=== PATIENT | male | born 1945 | race Caucasian/White ===

== ENCOUNTER 2018-04-07 10:14 | Emergency (ER) | payer MEDICARE, BC ==
[2018-04-07 10:47] LABS: ABSOLUTE LYMPHOCYTES (AUTO) 0.8 10^3/uL (0.5-4.7); ABSOLUTE MONOCYTES (AUTO) 0.6 10^3/uL (0.1-1.4); ABSOLUTE NEUT (AUTO) 5.2 10^3/uL (1.7-8.2); BASOPHILS % (AUTO) 0.4 % (0-2); EOSINOPHILS % (AUTO) 0.5 % (0-6); HEMATOCRIT 37.6 % (37.9-51.0); HEMOGLOBIN 13.4 g/dL (13.5-17.0); LYMPHOCYTES % (AUTO) 12.4 % (13-45); MEAN CORPUSCULAR HEMOGLOBIN 32.8 pg (27.0-33.4); MEAN CORPUSCULAR HGB CONC 35.5 g/dL (32.0-36.0); MEAN CORPUSCULAR VOLUME 92 fl (80-97); MONOCYTES % (AUTO) 8.7 % (3-13); PLATELET COUNT 336 10^3/uL (150-450); RED BLOOD COUNT 4.07 10^6/uL (4.35-5.55); TOTAL CELLS COUNTED % (AUTO) 100 %; WHITE BLOOD COUNT 6.6 10^3/uL (4.0-10.5)
[2018-04-07] MEDS ORDERED: NORMAL SALINE 1000 ML 1,000 ML IV ONE ×2 (11:00→11:47)
[2018-04-07 11:05] LABS: ALANINE AMINOTRANSFERASE 29 U/L (21-72); ALBUMIN 3.6 g/dL (3.5-5.0); ALKALINE PHOSPHATASE 145 U/L (38-126); ANION GAP 14 (5-19); ASPARTATE AMINO TRANSFERASE 32 U/L (17-59); BILIRUBIN,DIRECT 0.3 mg/dL (0.0-0.4); BILIRUBIN,TOTAL 0.7 mg/dL (0.2-1.3); BLOOD UREA NITROGEN 30 mg/dL (7-20); CALCIUM 9.1 mg/dL (8.4-10.2); CARBON DIOXIDE 27 mmol/L (22-30); CHLORIDE 93 mmol/L (98-107); GLUCOSE 123 mg/dL (75-110); POTASSIUM 3.7 mmol/L (3.6-5.0); SODIUM 134.2 mmol/L (137-145); TOTAL PROTEIN 6.8 g/dL (6.3-8.2)
--- NOTE | 2018-04-07 11:06 | ER Document Report ---
ED General - General Chief Complaint: Nausea/Vomiting Stated Complaint: WEAKNESS Time Seen by Provider: 04/07/18 10:37 Notes: Pleasant 72-year-old male with a very recent diagnosis of lymphoma, hypertension, CVA in 2015, diabetes presents to the emergency department for weakness and dehydration. states he has been very sick for the last 2 weeks and has had a very decreased appetite. She noticed that he had fruity breath and has been very lethargic and sleeping over the past 2 days prompting her to seek care. He was complaining of increased pain but took a hydrocodone prior to coming and now states he is pain-free. He denies fevers chills, headache, dizziness or lightheadedness, shortness of breath or chest pain, nausea or vomiting, abdominal pain, no other complaints. states that he was altered last night. TRAVEL OUTSIDE OF THE [place] IN LAST 30 DAYS: No - Related Data Allergies/Adverse Reactions: No Known Allergies Allergy (Verified 04/07/18 10:16) Past Medical History - Social History Smoking Status: Unknown if Ever Smoked Family History: Reviewed & Not Pertinent Review of Systems - Review of Systems Constitutional: See HPI EENT: No symptoms reported Cardiovascular: See HPI Respiratory: See HPI Gastrointestinal: See HPI Genitourinary: See HPI Male Genitourinary: No symptoms reported Musculoskeletal: No symptoms reported Skin: No symptoms reported Hematologic/Lymphatic: No symptoms reported Neurological/Psychological: See HPI Physical Exam - Vital signs Vitals: Temp Pulse Resp BP Pulse Ox 97.8 F 118 H 18 107/70 96 04/07/18 10:20 04/07/18 10:20 04/07/18 10:20 04/07/18 10:20 04/07/18 10:20 - Notes Notes: PHYSICAL EXAMINATION: Reviewed vital signs and charting by RN GENERAL: Alert, interacts well. No acute distress. HEAD: Normocephalic, atraumatic. EYES: Pupils equal, round. Extraocular movements intact. ENT: Oral mucosa dry, tongue midline. NECK: Full range of motion. Supple. Trachea midline. LUNGS: Clear to auscultation bilaterally, no wheezes, rales, or rhonchi. No respiratory distress. HEART: Sinus tachycardia. No murmur ABDOMEN: soft, mild epigastric tenderness to palpation. Non-distended. Bowel sounds present in all 4 quadrants. no McBurney's point tenderness, no Paiz si gn. EXTREMITIES: Moves all 4 extremities spontaneously. No edema, No cyanosis. NEUROLOGICAL: Alert. Normal speech. No focal neuro deficits. No pronator drift. Strength 5/5 in all 4 extremities. Strength 5/5 plantar/dorsiflexion PSYCH: Normal affect, normal mood. SKIN: Warm, dry, normal turgor. No rashes or lesions noted. Course - Re-evaluation Re-evalutation: 04/07/18 13:19 Patient presents general failure to thrive. Recently diagnosed with lymphoma. Has not eaten hardly any food in 2 weeks. Patient initially sinus tachycardia and looks clinically dehydrated. Patient has received 2 L normal saline with mild resolution of tachycardia, he is currently borderline sinus tachycardia. Lactate 1.0, negative troponin, no acidosis. I called Dr. Ferrara to consult. He requested further hydration. At this point family members concerned that patient will bounce right back here for needed hydration. 04/07/18 14:[address] Ferrara and asked for formal consultation, he refused to see the patient stated he did not meet admission criteria. I called Dr. Parsons, the patient's oncologist, who agreed to see the patient first thing in the morning and arrange for IV hydration. I discussed this with the patient and his who is a nurse. She feels comfortable with this plan as she noted he has perked up some. He still is sinus tachycardia and does appear clinically dehydrated. We are going to give the patient a lactated Ringer's 500 mL bolus 1 time prior to discharge. Patient states he does have Zofran for nausea but it does not help is not likely dissolvable tabs. Dr. Whiteside went and saw the patient and discussed these things and we will give him Compazine to take home as needed. Also, he just started taking omeprazole yesterday morning but we will give him a prescription for 40 mg daily because he is taking 20 mg [id number]. Patient at this point is stable to discharge home and is very clear about return precautions. - Vital Signs Vital signs: Temp Pulse Resp BP Pulse Ox 97.8 F 118 H 20 122/87 H 97 04/07/18 10:20 04/07/18 10:20 04/07/18 12:04/07/18 12:04/07/18 12:01 - Laboratory Result Diagrams: 04/07/18 10:39 04/07/18 10:39 Laboratory results interpreted by me: 04/07/18 04/07/18 04/07/18 10:39 10:39 12:25 RBC 4.07 L Hgb 13.4 L Hct 37.6 L Lymphocytes % 12.4 L Sodium 134.2 L Chloride 93 L BUN 30 H Est GFR (Non-Af Amer) 57 L Glucose 123 H Alkaline Phosphatase 145 H Urine Ketones 20 H Discharge - Discharge Clinical Impression: Dehydration Condition: Good Disposition: HOME, SELF-CARE Instructions: Dehydration ([facility]) Additional Instructions: Please try to maintain fluid intake. You can try taking the Compazine we have prescribed prior to drinking fluids and eating. Hopefully this will stimulate her appetite. If you continue to become weaker, become dizzy or lightheaded, pale, pass out, please immediately return to the emergency department. Also, given you a prescription for omeprazole 40 mg to take daily please take it 30-60 minutes prior to eating anything in the morning. If you have any other concerns please do not hesitate to return to the emergency department. Like we discussed, I talked to Dr. Dixon and she wants you to follow-up first thing in the morning in her office for reassessment and possible IV hydration. Again, if you have any concerns prior to that please do not hesitate to return to the emergency department.
--- NOTE | 2018-04-07 11:44 | RADIOLOGY REPORT (SQ) ---
EXAM DESCRIPTION: CHEST SINGLE VIEW COMPLETED DATE/TIME: 04/07/2018 11:25 am REASON FOR STUDY: weakness COMPARISON: None. EXAM PARAMETERS: NUMBER OF VIEWS: One view. TECHNIQUE: Single frontal radiographic view of the chest acquired. RADIATION DOSE: NA LIMITATIONS: None. FINDINGS: LUNGS AND PLEURA: No opacities, masses or pneumothorax. No pleural effusion. MEDIASTINUM AND HILAR STRUCTURES: No masses. Contour normal. HEART AND VASCULAR STRUCTURES: Heart normal in size. Normal vasculature. BONES: No acute findings. HARDWARE: None in the chest. OTHER: No other significant finding. IMPRESSION: NO ACUTE RADIOGRAPHIC FINDING IN THE CHEST. TECHNICAL DOCUMENTATION: JOB ID: [id number] [employer]- All Rights Reserved Reading location - IP/workstation name: [email or web address]
[2018-04-07 12:44] LABS: APPEARANCE,URINE SLIGHTLY-CLOUDY; BILIRUBIN,URINE NEGATIVE (NEGATIVE); COLOR,URINE AMBER; GLUCOSE, URINE NEGATIVE (NEGATIVE); KETONES,URINE 20 mg/dL (NEGATIVE); LEUKOCYTE ESTERASE,URINE NEGATIVE (NEGATIVE); NITRITE,URINE NEGATIVE (NEGATIVE); PROTEIN,URINE NEGATIVE (NEGATIVE); URINE SPECIFIC GRAVITY 1.024; UROBILINOGEN,URINE NEGATIVE mg/dL (<2.0)
[2018-04-07] MEDS ORDERED: RINGERS SOLUTION,LACTATED 500 ML IV ONE (13:57)
[2018-04-07] MEDS ORDERED: CEPHALEXIN 500 MG CAPSULE PO ONE (14:28)
[2018-04-07 14:48] VITALS: BP 114/66
--- NOTE | 2018-04-07 22:50 | EKG REPORT ---
SEVERITY:- ABNORMAL ECG - SINUS TACHYCARDIA LEFT AXIS DEVIATION LOW VOLTAGE THROUGHOUT CONSIDER ANTERIOR INFARCT NONSPECIFIC T ABNORMALITIES, LATERAL LEADS : Confirmed by: Bina Petty 07-Apr-2018 22:49:32
== END 2018-04-07 14:57 | disposition home or self-care (01) ==
LOC: ER 10:14
DX: E86.0 Dehydration (principal); C85.90 Non-Hodgkin lymphoma, unspecified, unspecified site; R62.7 Adult failure to thrive; R53.1 Weakness; R63.0 Anorexia; R00.0 Tachycardia, unspecified; I10 Essential (primary) hypertension; Z86.73 Personal history of transient ischemic attack (TIA), and cerebral infarction without residual deficits
CPT/HCPCS: 93005; 99285; 96360; 96361; 36415; 83735; 85025; 80053; 81001; 84484; 83605; 71045; 93010; J7030; J7120

== ENCOUNTER 2018-04-09 02:30 | Inpatient (IN) | payer MEDICARE, BC ==
[2018-04-09 04:18] LABS: ABSOLUTE LYMPHOCYTES (AUTO) 0.6 10^3/uL (0.5-4.7); ABSOLUTE MONOCYTES (AUTO) 0.4 10^3/uL (0.1-1.4); ABSOLUTE NEUT (AUTO) 5.6 10^3/uL (1.7-8.2); BASOPHILS % (AUTO) 0.5 % (0-2); EOSINOPHILS % (AUTO) 0.2 % (0-6); HEMATOCRIT 37.3 % (37.9-51.0); HEMOGLOBIN 13.1 g/dL (13.5-17.0); LYMPHOCYTES % (AUTO) 9.7 % (13-45); MEAN CORPUSCULAR HEMOGLOBIN 32.8 pg (27.0-33.4); MEAN CORPUSCULAR HGB CONC 35.2 g/dL (32.0-36.0); MEAN CORPUSCULAR VOLUME 93 fl (80-97); MONOCYTES % (AUTO) 6.7 % (3-13); PLATELET COUNT 336 10^3/uL (150-450); RED BLOOD COUNT 4.01 10^6/uL (4.35-5.55); RED CELL DISTRIBUTION WIDTH 13.3 % (11.5-14.0); SEGMENTED NEUTROPHILS % (AUTO) 82.9 % (42-78); TOTAL CELLS COUNTED % (AUTO) 100 %; WHITE BLOOD COUNT 6.7 10^3/uL (4.0-10.5)
[2018-04-09 04:34] LABS: ALANINE AMINOTRANSFERASE 28 U/L (21-72); ALBUMIN 3.3 g/dL (3.5-5.0); ALKALINE PHOSPHATASE 131 U/L (38-126); ANION GAP 15 (5-19); ASPARTATE AMINO TRANSFERASE 31 U/L (17-59); BILIRUBIN,DIRECT 0.3 mg/dL (0.0-0.4); BILIRUBIN,TOTAL 0.5 mg/dL (0.2-1.3); BLOOD UREA NITROGEN 22 mg/dL (7-20); CALCIUM 8.8 mg/dL (8.4-10.2); CARBON DIOXIDE 24 mmol/L (22-30); CHLORIDE 100 mmol/L (98-107); GLUCOSE 119 mg/dL (75-110); LIPASE 37.3 U/L (23-300); SODIUM 138.8 mmol/L (137-145); TOTAL PROTEIN 6.1 g/dL (6.3-8.2)
--- NOTE | 2018-04-09 05:50 | RADIOLOGY REPORT (SQ) ---
EXAM DESCRIPTION: CT ABDOMEN PELVIS WITH IV CONTRAST COMPLETED DATE/TME: 04/09/2018 02:41 CLINICAL HISTORY: 72 years, Male, ab pain COMPARISON: None. TECHNIQUE: 719 Images stored on PACS. All CT scanners at this facility use dose modulation, iterative reconstruction, and/or weight based dosing when appropriate to reduce radiation dose to as low as reasonably achievable (ALARA). [facility]: Dose Right [facility]: CareDose [facility]: Dose Right [facility]: Teradose 4D [facility]: [employer] LIMITATIONS: None. FINDINGS: Limited evaluation of the lung bases shows small bilateral pleural effusions. Posterior mediastinal adenopathy, measuring 2.4 x 2.1 cm. Osseous structures of the abdomen/pelvis are grossly intact. The liver, spleen are unremarkable. Prominent appearance to the adrenal glands without discrete or defined nodule. Heterogeneity of the pancreas. Status post cholecystectomy. There is a punctate calcification measuring 2 mm in the region of the pancreatic head. This may be vascular. Nonspecific nonenlarged as well as mildly enlarged lymph nodes throughout the upper abdomen and retroperitoneum. The largest node is in the right aortocaval region, measuring approximately 2.8 x 1.8 cm. Partially calcified left renal cyst. Subjective wall thickening of the duodenum could reflect nonspecific duodenitis. Haziness of the central mesentery with multiple nonenlarged to borderline enlarged central mesenteric lymph nodes. No gross evidence for bowel obstruction. No free intraperitoneal air. Moderate atheromatous change. Trace of ascites. Minor subcutaneous edema and inflammation in the lower anterior abdomen/pelvic region. IMPRESSION: Nonspecific adenopathy of the posterior mediastinum/right infrahilar region as well as nonspecific adenopathy within the upper abdomen, as well as in the retroperitoneum. Mild haziness of the pancreas, correlate with pancreatic enzyme levels. Small bilateral pleural effusions. Possible mild cellulitis of the lower anterior abdomen/pelvic wall.. TECHNICAL DOCUMENTATION: Quality ID # 436: Final reports with documentation of one or more dose reduction techniques (e.g., Automated exposure control, adjustment of the mA and/or kV according to patient size, use of iterative reconstruction technique) copyright 2010 [employer]- All Rights Reserved
--- NOTE | 2018-04-09 05:53 | ER Document Report ---
ED General - General Chief Complaint: Abdominal Pain Stated Complaint: ABDOMINAL PAIN Time Seen by Provider: 04/09/18 02:41 Primary Care Provider: LILA GARCIA MD [Primary Care Provider] - Follow up as needed Cannot obtain history due to: Altered mental status Notes: Patient is a 72-year-old male with past medical history of hypertension, presents with intractable pain, inability to tolerate oral intake, no p.o. intake at home that is been ongoing for the past 2 weeks progressive worsening o roxanne that period of time. In summary the patient was found to have diffuse adenopathy, possible gastric versus pancreatic cancer at [facility] after he presented for upper abdominal pain apparently 2 weeks ago. The family is been following with oncology since that time, waiting to follow definitive diagnosis with biopsy and endoscopy. The provides all history as the patient is resting at the time of my initial evaluation. She reports that at home despite giving 4 mg of oral Dilaudid, 2 tabs of hydrocodone, Compazine, Zofran, has been completely unable to control the patient's symptoms. She states that he also will not take any form of oral intake and that the only fluids he has received have been via IV through the oncology clinic. He has not had fever. She states nothing seems to worsen his symptoms. History is otherwise limited secondary to patient's status at time of my assessment. TRAVEL OUTSIDE OF THE [place] IN LAST 30 DAYS: No - Related Data Allergies/Adverse Reactions: No Known Allergies Allergy (Verified 04/07/18 10:16) Past Medical History - General Information source: Relative - Social History Smoking Status: Never Smoker Frequency of alcohol use: None Drug Abuse: None Lives with: Spouse/Significant other Family History: Reviewed & Not Pertinent Patient has suicidal ideation: No Patient has homicidal ideation: No - Past Medical History Cardiac Medical History: Reports: Hx Hypertension Endocrine Medical History: Reports: Hx Diabetes Mellitus Type 2 Renal/ Medical History: Denies: Hx Peritoneal Dialysis Past Surgical History: Reports: Hx Cholecystectomy Review of Systems - Review of Systems Notes: Constitutional: Negative for fever. HENT: Negative for sore throat. Eyes: Negative for visual changes. Cardiovascular: Negative for chest pain. Respiratory: Negative for shortness of breath. Gastrointestinal: Positive for abdominal pain, nausea Genitourinary: Negative for dysuria. Musculoskeletal: Negative for back pain. Skin: Negative for rash. Neurological: Negative for headaches, weakness or numbness. 10 point ROS negative except as marked above and in HPI. Physical Exam - Vital signs Vitals: Resp 18 04/09/18 02:44 Interpretation: Tachycardic Notes: PHYSICAL EXAMINATION: GENERAL: Somewhat lethargic, intermittently grimacing. HEAD: Atraumatic, normocephalic. EYES: Pupils equal round and reactive to light, extraocular movements intact, sclera anicteric, conjunctiva are normal. ENT: nares patent, oropharynx clear without exudates. Dry mucous membranes. NECK: Normal range of motion, supple without lymphadenopathy LUNGS: Breath sounds clear to auscultation bilaterally and equal. No wheezes rales or rhonchi. HEART: Regular tachycardia without murmurs ABDOMEN: Soft, mild diffuse tenderness to the upper abdomen on palpation but no other localized areas of tenderness, normoactive bowel sounds. No guarding, no rebound. No masses appreciated. EXTREMITIES: Normal range of motion, no pitting or edema. No cyanosis. NEUROLOGICAL: No focal neurological deficits. Moves all extremities spontaneously and on command. PSYCH: Somewhat lethargic but does awaken to answer questions when directly asked. SKIN: Warm, Dry, normal turgor, no rashes or lesions noted. Course - Re-evaluation Re-evalutation: 04/09/18 06:35 Presentation of the patient with uncontrolled pain and inability to tolerate oral intake at home in the setting of probable gastric versus pancreatic cancer versus lymphoma. Patient's labs are overall unremarkable the patient has been receiving IV fluids as an outpatient. Has had periods where he has ripped off his sheets, began writhing around in pain the department witnessed by nursing staff. This has been controlled with IV hydromorphone. I did discuss this case with the patient's oncologist who reports that the patient is failing outpatient management, appropriate for hospitalization. I did discuss with Dr. Marcos who has accepted the patient given intractable pain and inability to take oral intake. - Vital Signs Vital signs: Temp Pulse Resp BP Pulse Ox 97.8 F 19 146/96 H 96 04/09/18 06:27 04/09/18 06:01 04/09/18 06:01 04/09/18 06:01 - Laboratory Result Diagrams: 04/09/18 03:55 04/09/18 03:55 Laboratory results interpreted by me: 04/09/18 04/09/18 03:55 03:55 RBC 4.01 L Hgb 13.1 L Hct 37.3 L Seg Neutrophils % 82.9 H Lymphocytes % 9.7 L BUN 22 H Glucose 119 H Alkaline Phosphatase 131 H Total Protein 6.1 L Albumin 3.3 L - Diagnostic Test Radiology reviewed: Reports reviewed Discharge - Discharge Clinical Impression: Intractable pain, Nausea, Abdominal lymphadenopathy Condition: Fair Disposition: ADMITTED INPATIENT Admitting Provider: Hospitalist Unit Admitted: Medical Floor Referrals: LILA GARCIA MD [Primary Care Provider] - Follow up as needed
[2018-04-09] MEDS ORDERED: HYDROMORPHONE HCL INJ/PF 2 MG/ML AMPULE IV PRN (06:08)
[2018-04-09] MEDS ORDERED: MAGNESIUM HYDROXIDE SUSP 30 ML UDCUP PO PRN (06:47)
[2018-04-09] MEDS ORDERED: ONDANSETRON HCL INJ/PF 4 MG/2 ML SDV IV PRN (07:21)
--- NOTE | 2018-04-09 07:21 | PDOC H&P ---
History of Present Illness Admission Date/PCP: LILA GARCIA MD Patient complains of: Intractable pain, nausea and vomiting History of Present Illness: FIDEL SANTILLAN is a 72 year old male with a past medical history of hypertension, 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 He requires IV D ilaudid and Ativan and referred to the hospitalist for admission for diagnostic lymph node biopsy and oncology consult. Patient is sedated and unable to provide history. Past Medical History Cardiac Medical History: Reports: Hypertension Endocrine Medical History: Reports: Diabetes Mellitus Type 2 Past Surgical History Past Surgical History: Reports: Cholecystectomy Social History Information Source: Relative, [facility] Records Lives with: Spouse/Significant other Smoking Status: Former Smoker Number of Years Smokin Frequency of Alcohol Use: None Drugs: None - Advance Directive Resuscitation Status: Full Code Family History Family History: Malignancy - Brother unknown malignancy Parental Family History Reviewed: Yes Children Family History Reviewed: Yes Sibling(s) Family History Reviewed.: Yes Medication/Allergy Home Medications: Omeprazole 40 mg PO DAILY #30 capsule. 04/07/18 Prochlorperazine Maleate [Compazine 10 mg Tablet] 10 mg PO Q6H PRN #40 tablet 04/07/18 Allergies/Adverse Reactions: No Known Allergies Allergy (Verified 04/07/18 10:16) Review of Systems ROS unobtainable: Due to mental status Physical Exam Vital Signs: Temp Pulse Resp BP Pulse Ox 97.8 F 19 146/96 H 96 04/09/18 06:27 04/09/18 06:01 04/09/18 06:01 04/09/18 06:01 Intake & Output 04/07/18 04/08/18 04/09/18 11:59 11:59 11:59 Weight 108.409 kg General appearance: PRESENT: mild distress, well-developed, well-nourished Head exam: PRESENT: atraumatic Eye exam: PRESENT: conjunctiva pink, EOMI, PERRLA. ABSENT: scleral icterus Ear exam: PRESENT: normal external ear exam Mouth exam: PRESENT: dry mucosa. ABSENT: moist, neck supple Neck exam: ABSENT: carotid bruit, JVD, lymphadenopathy, thyromegaly Respiratory exam: PRESENT: clear to auscultation baldev. ABSENT: rales, rhonchi, wheezes Cardiovascular exam: PRESENT: RRR. ABSENT: diastolic murmur, rubs, systolic murmur Pulses: PRESENT: normal dorsalis pedis pul Vascular exam: PRESENT: normal capillary refill GI/Abdominal exam: PRESENT: diminished bowel sounds, normal bowel sounds, soft. ABSENT: distended, guarding, mass, organolmegaly, rebound, tenderness Rectal exam: PRESENT: deferred Extremities exam: PRESENT: full ROM. ABSENT: calf tenderness, clubbing, pedal edema Neurological exam: PRESENT: altered, CN II-XII grossly intact Psychiatric exam: PRESENT: agitated Skin exam: PRESENT: dry, intact, warm. ABSENT: cyanosis, rash Results Laboratory Results: 04/09/18 03:55 04/09/18 03:55 04/09/18 04/09/18 03:55 03:55 WBC 6.7 RBC 4.01 L Hgb 13.1 L Hct 37.3 L MCV 93 MCH 32.8 MCHC 35.2 RDW 13.3 Plt Count 336 Seg Neutrophils % 82.9 H Lymphocytes % 9.7 L Monocytes % 6.7 Eosinophils % 0.2 Basophils % 0.5 Absolute Neutrophils 5.6 Absolute Lymphocytes 0.6 Absolute Monocytes 0.4 Absolute Eosinophils 0.0 Absolute Basophils 0.0 Sodium 138.8 Potassium 4.0 Chloride 100 Carbon Dioxide 24 Anion Gap 15 BUN 22 H Creatinine 1.05 Est GFR ( Amer) > 60 Est GFR (Non-Af Amer) > 60 Glucose 119 H Calcium 8.8 Total Bilirubin 0.5 AST 31 ALT 28 Alkaline Phosphatase 131 H Total Protein 6.1 L Albumin 3.3 L Lipase 37.3 04/09/18 03:55 Troponin I 0.018 Impressions: Abdomen/Pelvis CT 04/09/18 02:41 IMPRESSION: Nonspecific adenopathy of the posterior mediastinum/right infrahilar region as well as nonspecific adenopathy within the upper abdomen, as well as in the retroperitoneum. Mild haziness of the pancreas, correlate with pancreatic enzyme levels. Small bilateral pleural effusions. Possible mild cellulitis of the lower anterior abdomen/pelvic wall.. TECHNICAL DOCUMENTATION: Quality ID # 436: Final reports with documentation of one or more dose reduction techniques (e.g., Automated exposure control, adjustment of the mA and/or kV according to patient size, use of iterative reconstruction technique) copyright 2011 [employer]- All Rights Reserved Assessment & Plan - Diagnosis (1) Abdominal lymphadenopathy Is this a current diagnosis for this admission?: Yes Plan: Unclear primary, surgical consult for biopsy. Follow-up oncology consult (2) Intractable pain Is this a current diagnosis for this admission?: Yes Plan: IV Dilaudid, Ativan as needed, consider NET MANAGER (3) Nausea Is this a current diagnosis for this admission?: Yes Plan: Ativan and Zofran as needed - Time Time Spent: 50 to 70 Minutes - Inpatient Certification Medical Necessity: Need Close Monitoring Due to Risk of Patient Decompensation
[2018-04-09] MEDS ORDERED: DEXTROSE 5%-NORMAL SALINE 1,000 ML IV ONE (08:14)
--- NOTE | 2018-04-09 09:05 | PDOC PROGRESS REPORT ---
Subjective Progress Note for:: 04/09/18 Subjective:: Hospital Day #1. Still complains of abdominal pain. Pain is alleviated with IV dilaudid. Pain is sharp and rating 7-9 when it hits. He rests comfortably when medicated. He denies any nausea or vomiting, no diarrhea or constipation. No fever or chills. He has had a 20 pound weight loss over the past 3-4 weeks due to not being able to eat due to pain and early satiety. Reason For Visit: INTRACTABLE PAIN STAGE 4 LYMPHOMA VS PANC CA Physical Exam Vital Signs: Temp Pulse Resp BP Pulse Ox 97.8 F 21 H 130/86 H 92 04/09/18 06:27 04/09/18 08:01 04/09/18 08:00 04/09/18 08:01 Intake & Output 04/08/18 04/09/18 04/10/18 06:59 06:59 06:59 Weight 108.409 kg General appearance: PRESENT: no acute distress, cooperative, well-developed Eye exam: PRESENT: EOMI, PERRLA. ABSENT: scleral icterus Ear exam: PRESENT: TM's normal bilaterally Mouth exam: PRESENT: dry mucosa, neck supple Teeth exam: ABSENT: dental caries Neck exam: PRESENT: lymphadenopathy. ABSENT: carotid bruit, JVD, tenderness, thyromegaly, tracheal deviation Respiratory exam: PRESENT: clear to auscultation baldev. ABSENT: accessory muscle use, chest wall tenderness Cardiovascular exam: PRESENT: tachycardia. ABSENT: diastolic murmur Pulses: PRESENT: normal carotid pulses Vascular exam: PRESENT: pallor GI/Abdominal exam: PRESENT: tenderness. ABSENT: ascites, distended Extremities exam: ABSENT: calf tenderness Musculoskeletal exam: PRESENT: ambulatory Neurological exam: PRESENT: alert, oriented to person, oriented to place, oriented to time, oriented to situation Skin exam: PRESENT: dry. ABSENT: erythema Results Laboratory Results: 04/09/18 03:55 04/09/18 03:55 04/09/18 04/09/18 04/09/18 03:55 03:55 03:55 WBC 6.7 RBC 4.01 L Hgb 13.1 L Hct 37.3 L MCV 93 MCH 32.8 MCHC 35.2 RDW 13.3 Plt Count 336 Seg Neutrophils % 82.9 H Lymphocytes % 9.7 L Monocytes % 6.7 Eosinophils % 0.2 Basophils % 0.5 Absolute Neutrophils 5.6 Absolute Lymphocytes 0.6 Absolute Monocytes 0.4 Absolute Eosinophils 0.0 Absolute Basophils 0.0 Sodium 138.8 Potassium 4.0 Chloride 100 Carbon Dioxide 24 Anion Gap 15 BUN 22 H Creatinine 1.05 Est GFR ( Amer) > 60 Est GFR (Non-Af Amer) > 60 Glucose 119 H Calcium 8.8 Phosphorus 3.1 Total Bilirubin 0.5 AST 31 ALT 28 Alkaline Phosphatase 131 H Total Protein 6.1 L Albumin 3.3 L Lipase 37.3 04/09/18 03:55 Troponin I 0.018 Impressions: Abdomen/Pelvis CT 04/09/18 02:41 IMPRESSION: Nonspecific adenopathy of the posterior mediastinum/right infrahilar region as well as nonspecific adenopathy within the upper abdomen, as well as in the retroperitoneum. Mild haziness of the pancreas, correlate with pancreatic enzyme levels. Small bilateral pleural effusions. Possible mild cellulitis of the lower anterior abdomen/pelvic wall.. TECHNICAL DOCUMENTATION: Quality ID # [id number]: Final reports with documentation of one or more dose reduction techniques (e.g., Automated exposure control, adjustment of the mA and/or kV according to patient size, use of iterative reconstruction technique) copyright 2011 [employer]- All Rights Reserved Assessment & Plan - Diagnosis (1) Diabetes Qualifiers: Diabetes mellitus type: type 2 Diabetes mellitus watermelon harvesting supervisor insulin use: without watermelon harvesting supervisor use Diabetes mellitus complication status: with circulatory complication Diabetes mellitus complication detail: with other circulatory complications Qualified Code(s): E11.59 - Type 2 diabetes mellitus with other circulatory complications Is this a current diagnosis for this admission?: Yes Plan: Will start SSI and FSBGL. continue to monitor. Holding oral medications due to being NPO. (2) Abdominal lymphadenopathy Is this a current diagnosis for this admission?: Yes Plan: Continue IVF with D5 NS. Discussed with surgery services and still plan to proceed with EGD/Colonoscopy and lymph node biopsy. Will continue to monitor labs (3) Intractable pain Is this a current diagnosis for this admission?: Yes Plan: currently receiving IV dilaudid. Tolerating well. due to high likelihood of requiring pain medications and failure of oral pain medications, will consider starting on POWER PLANT ASSISTANT (4) Nausea Is this a current diagnosis for this admission?: Yes Plan: Improved with hydrations, pain management and zofran. still awaiting EGD. (5) Dehydration Is this a current diagnosis for this admission?: Yes (6) CVD (cerebrovascular disease) Is this a current diagnosis for this admission?: Yes Plan: Previous stroke in 2015. Has been holding his plavix for the past 5 days due to abdominal pain, nausea and high likelihood of surgical procedures. will need to discuss restarting following surgical procedures - Time Time Spent with patient: 25-34 minutes
[2018-04-09] MEDS ORDERED: DEXTROSE 40% GEL 15 GM TUBE PO PRN ×2 (10:24)
[2018-04-09] MEDS ORDERED: GLUCAGON,HUMAN RECOMB 1 MG INJ SUBCUT PRN (10:24)
[2018-04-09] MEDS ORDERED: DEXTROSE 50%-WATER 25 GM/50 ML DISP.SYRIN IV PRN ×2 (10:24)
[2018-04-09] MEDS: ALLOPURINOL 300 MG TABLET PO SCH (10:30)
[2018-04-09] MEDS: HYDROMORPHONE HCL INJ/PF 2 MG/ML AMPULE IV PRN ×4 (11:10→23:21)
--- NOTE | 2018-04-09 13:15 | Physician Advisory Note ---
Physician Advisor ProgressNote .: Pursuant to the plan for [facility], I have reviewed the medical record for this patient. Physician Advisor Statement: Status: 72yo male Medicare pt with HTN & DM-2, recently found tremendous lymphadenopathy felt to be from stage 4 lymphoma vs pancreatic CA, dx not yet confirmed. - Intractable pain is not always a reason to start with Inpatient status, as sometimes a patient responds quickly to parenteral meds that then can be translated to a different oral regimen. - However, this pt not only has intractable pain, and ongoing nausea despite compazine & Zofran prior to ED visit, but has been unable to tolerate po intake x 2weeks, losing 20# over 3-4 weeks due to combination of pain, nausea, & early satiety, a process that is unlikely to reverse quickly, and he also has developed dehydration, despite recurrent IV fluid therapy outpatient with onc clinic attempting to prevent an admission. According to H&P, patient still needs workup including bx for definitive dx of type CA, in addition. He was lethargic in ED. He has been treated with IVF since arrival and remains persistently tachycardic. His Plavix has been held since prior to adm due to expectation of procedure(s). - Highly unlikely to respond quickly and be ready for safe d/c home after just 1 MN. Appropriate for Inpatient status. Attending, please consider documenting, if you agree: 1. Do you believe pt has, vs has been ruled out for, "protein-calorie malnutrition [state mild/mod/ sev] with BMI 32.4, ... [?appetite loss ]" - if this is felt to be present, please state all supporting evidence present: A. Loss of subcut fat is mild/mod/sev, B. Loss of muscle mass is mild/mod/sev C. Special Shopper strength noticeably reduced (or not) D. Amt weight lost over the past week/mo/3mo/6mo/year (note usual wt) E. Intake <50% of estimated energy requirements for 5-7 days, or <75% of estimated energy requirements for 1+mo.s? -Construction Analyst can document this if consulted. & clinical importance such as: A. special education secretary consult ordered, B. modified diet/supplements ordered, C. additional labs ordered, D. prolonged wound healing time, E. delayed infxn clearance] Thanks! CK
[2018-04-09] MEDS: HEPARIN SOD (PORCINE) 5,000 UNIT/ML 1 ML SYRINGE SUBCUT SCH ×2 (14:10→23:21)
[2018-04-09] MEDS: NORMAL SALINE 1000 ML 1,000 ML IV PRN (16:45)
[2018-04-10] MEDS: HYDROMORPHONE HCL INJ/PF 2 MG/ML AMPULE IV PRN ×8 (02:41→23:44)
[2018-04-10] MEDS: HEPARIN SOD (PORCINE) 5,000 UNIT/ML 1 ML SYRINGE SUBCUT SCH ×3 (05:08→21:19)
[2018-04-10 05:38] LABS: ABSOLUTE LYMPHOCYTES (AUTO) 0.9 10^3/uL (0.5-4.7); ABSOLUTE MONOCYTES (AUTO) 0.6 10^3/uL (0.1-1.4); ABSOLUTE NEUT (AUTO) 5.7 10^3/uL (1.7-8.2); BASOPHILS % (AUTO) 0.4 % (0-2); EOSINOPHILS % (AUTO) 0.6 % (0-6); HEMATOCRIT 32.6 % (37.9-51.0); HEMOGLOBIN 11.4 g/dL (13.5-17.0); LYMPHOCYTES % (AUTO) 11.8 % (13-45); MEAN CORPUSCULAR HEMOGLOBIN 32.6 pg (27.0-33.4); MEAN CORPUSCULAR HGB CONC 35.1 g/dL (32.0-36.0); MEAN CORPUSCULAR VOLUME 93 fl (80-97); MONOCYTES % (AUTO) 8.6 % (3-13); PLATELET COUNT 285 10^3/uL (150-450); RED BLOOD COUNT 3.51 10^6/uL (4.35-5.55); RED CELL DISTRIBUTION WIDTH 13.2 % (11.5-14.0); SEGMENTED NEUTROPHILS % (AUTO) 78.6 % (42-78); TOTAL CELLS COUNTED % (AUTO) 100 %; WHITE BLOOD COUNT 7.2 10^3/uL (4.0-10.5)
[2018-04-10 06:05] LABS: ANION GAP 10 (5-19); BLOOD UREA NITROGEN 22 mg/dL (7-20); CALCIUM 8.6 mg/dL (8.4-10.2); CARBON DIOXIDE 23 mmol/L (22-30); CHLORIDE 103 mmol/L (98-107); GLUCOSE 119 mg/dL (75-110); POTASSIUM 3.7 mmol/L (3.6-5.0); SODIUM 136.2 mmol/L (137-145)
--- NOTE | 2018-04-10 08:28 | PDOC CONSULTATION ---
Consultation Consult Date: 04/10/18 Consult reason:: Hematology/Oncology consult was requested for patient with lymphadenopathy and possible lymphoma. History of Present Illness Admission Date/PCP: 04/09/18 07:19 LILA GARCIA MD History of Present Illness: FIDEL SANTILLAN is a 72 year old male who has had increasing fatigue, nausea, vomiting over the last [address] performed as out patient revealed widespread lymphadenopathy consistent with a lymphoma. Although PET/CT and biopsy had been arranged as outpatient, patient's abdominal pain and vomiting was unable to be controlled at home and he was admitted for further work-up. He is scheduled for biopsy tomorrow morning. His PET/CT was scheduled for today, but will need to be rescheduled, while he is an inpatient. He has been requiring Dilaudid q 3 hours and has been able to have some sips of fluids, but otherwise, states that he feels miserable. Past Medical History Cardiac Medical History: Reports: Hypertension Endocrine Medical History: Reports: Diabetes Mellitus Type 2 Psychiatric Medical History: Reports: Depression Past Surgical History Past Surgical History: Reports: Cholecystectomy Social History Lives with: Spouse/Significant other Smoking Status: Former Smoker Number of Years Smokin Frequency of Alcohol Use: Occasional Hx Recreational Drug Use: No Drugs: None Hx Prescription Drug Abuse: No - Advance Directive Resuscitation Status: Full Code Family History Family History: Malignancy - Brother unknown malignancy Parental Family History Reviewed: Yes Children Family History Reviewed: Yes Sibling(s) Family History Reviewed.: Yes Medication/Allergy Home Medications: Allopurinol [Zyloprim 300 mg Tablet] 300 mg PO DAILY 04/09/18 Amitriptyline HCl [Elavil 25 mg Tablet] 25 mg PO QHS 04/09/18 Clopidogrel Bisulfate [Plavix 75 mg Tablet] 75 mg PO DAILY 04/09/18 Hydrocodone/Acetaminophen [[place] 5-325 mg Tablet] 1 tab PO Q8HP PRN 04/09/18 Hydromorphone HCl [Dilaudid 2 mg Tablet] 2 mg PO Q4HP PRN 04/09/18 Lorazepam [Ativan 1 mg Tablet] 1 mg PO Q4HP PRN 04/09/18 Omeprazole 40 mg PO Q6AM 04/09/18 Prochlorperazine Maleate [Compazine 10 mg Tablet] 10 mg PO Q6HP PRN 04/09/18 Allergies/Adverse Reactions: No Known Allergies Allergy (Verified 04/07/18 10:16) Review of Systems Constitutional: PRESENT: weight loss. ABSENT: fever(s), headache(s) Eyes: ABSENT: visual disturbances Ears: ABSENT: hearing changes Nose, Mouth, and Throat: ABSENT: sore throat Cardiovascular: ABSENT: chest pain Respiratory: ABSENT: cough, dyspnea Gastrointestinal: PRESENT: abdominal pain, constipation, nausea, vomiting Genitourinary: ABSENT: dysuria Musculoskeletal: ABSENT: back pain Integumentary: ABSENT: rash Neurological: PRESENT: weakness Psychiatric: PRESENT: depression Hematologic/Lymphatic: PRESENT: lymphadenopathy Physical Exam Vital Signs: Temp Pulse Resp BP Pulse Ox 97.5 F 91 16 132/75 H 97 04/09/18 23:21 04/10/18 07:00 04/09/18 23:21 04/09/18 23:21 04/09/18 23:21 Intake & Output 04/09/18 04/10/18 04/11/18 06:59 06:59 06:59 Intake Total 1000 Balance 1000 Weight 108.409 kg 108.1 kg General appearance: PRESENT: well-developed, well-nourished Head exam: PRESENT: normocephalic Eye exam: PRESENT: EOMI, PERRLA Mouth exam: PRESENT: tongue midline Neck exam: PRESENT: lymphadenopathy - Supraclavicular. ABSENT: tenderness Respiratory exam: PRESENT: clear to auscultation baldev, unlabored Cardiovascular exam: PRESENT: other - Heart sound obscured GI/Abdominal exam: PRESENT: distended, soft, tenderness Extremities exam: ABSENT: pedal edema Musculoskeletal exam: PRESENT: normal inspection Neurological exam: PRESENT: alert, awake Psychiatric exam: PRESENT: depressed Focused psych exam: ABSENT: restlessness Skin exam: PRESENT: normal color Results Laboratory Results: 04/10/18 04:06 04/10/18 04:06 04/10/18 04/10/18 04:06 04:06 WBC 7.2 RBC 3.51 L Hgb 11.4 L Hct 32.6 L MCV 93 MCH 32.6 MCHC 35.1 RDW 13.2 Plt Count 285 Seg Neutrophils % 78.6 H Lymphocytes % 11.8 L Monocytes % 8.6 Eosinophils % 0.6 Basophils % 0.4 Absolute Neutrophils 5.7 Absolute Lymphocytes 0.9 Absolute Monocytes 0.6 Absolute Eosinophils 0.0 Absolute Basophils 0.0 Sodium 136.2 L Potassium 3.7 Chloride 103 Carbon Dioxide 23 Anion Gap 10 BUN 22 H Creatinine 0.94 Est GFR ( Amer) > 60 Est GFR (Non-Af Amer) > 60 Glucose 119 H Calcium 8.6 Magnesium 2.0 04/09/18 03:55 Troponin I 0.018 Impressions: Abdomen/Pelvis CT 04/09/18 02:41 IMPRESSION: Nonspecific adenopathy of the posterior mediastinum/right infrahilar region as well as nonspecific adenopathy within the upper abdomen, as well as in the retroperitoneum. Mild haziness of the pancreas, correlate with pancreatic enzyme levels. Small bilateral pleural effusions. Possible mild cellulitis of the lower anterior abdomen/pelvic wall.. TECHNICAL DOCUMENTATION: Quality ID # 436: Final reports with documentation of one or more dose reduction techniques (e.g., Automated exposure control, adjustment of the mA and/or kV according to patient size, use of iterative reconstruction technique) copyright 2011 [employer]- All Rights Reserved Assessment & Plan - Diagnosis (1) Abdominal lymphadenopathy Is this a current diagnosis for this admission?: Yes Plan: For supraclavicular biopsy tomorrow AM. (2) Intractable pain Is this a current diagnosis for this admission?: Yes Plan: Will start duragesic 25 mcg patch today and continue Dilaudid PRN. (3) Nausea Is this a current diagnosis for this admission?: Yes Plan: Continue current therapy. This has improved. - Plan Summary Plan Summary: Patient is too weak to be discharged. Will await biopsy before making treatment recommendations. Until then, will try to keep him as comfortable as possible.
[2018-04-10] MEDS: ALLOPURINOL 300 MG TABLET PO SCH (09:13)
[2018-04-10] MEDS ORDERED: FENTANYL 25 MCG/HR PATCH.TD72 TD SCH (10:00)
[2018-04-10] MEDS ORDERED: PROCHLORPERAZINE MALEATE 10 MG TABLET PO PRN (10:43)
[2018-04-10] MEDS ORDERED: CLOPIDOGREL BISULFATE 75 MG TABLET PO SCH (10:45)
[2018-04-10] MEDS ORDERED: ALLOPURINOL 300 MG TABLET PO SCH (10:45)
[2018-04-10] MEDS: NORMAL SALINE 1000 ML 1,000 ML IV PRN (10:53)
[2018-04-10] MEDS: LANSOPRAZOLE 30 MG TAB.RAP.DR PO SCH (12:11)
[2018-04-10] MEDS ORDERED: PEG 3350/NA SULF,BICARB,CL/KCL 4000 ML PO ONE (15:00)
[2018-04-10] MEDS: ONDANSETRON HCL INJ/PF 4 MG/2 ML SDV IV PRN (16:08)
[2018-04-10] MEDS ORDERED: ONDANSETRON 4 MG TAB.RAPDIS PO PRN (16:21)
[2018-04-10] MEDS ORDERED: PROMETHAZINE HCL INJ 25 MG/1 ML VIAL IV PRN (16:21)
[2018-04-10] MEDS ORDERED: NORMAL SALINE 1000 ML 1,000 ML IV PRN (16:23)
--- NOTE | 2018-04-10 16:36 | PDOC PROGRESS REPORT ---
Subjective Progress Note for:: 04/10/18 Subjective:: 72 y.o. M with a PMH of DM and HTN presented to [facility] for abdominal pain, nausea and vomiting x [address] performed outpatient revealed widespread lymphadenopathy consistent with lymphoma. PET/CT and biopsy had been arranged as outpatient, but patient's abdominal pain became so severe he presented to the ED for symptom management. Admitted to hospitalist service for pain management. Plan for EGD, colonoscopy and biopsy tomorrow. The patient was seen this morning on rounds. He is resting in bed. When asked how he is feeling, the patient stated "if you had a gun and shot me, that would be an improvement." Patient complains of persistent abdominal pain, anorexia and nausea. Denies vomiting or diarrhea. Continue with IV Dilaudid as needed, fentanyl patch added to regimen today by Dr. White. Initiate PRN Zofran ODT and as needed Phenergan IV. Reason For Visit: INTRACTABLE PAIN STAGE 4 LYMPHOMA VS PANC CA Physical Exam Vital Signs: Temp Pulse Resp BP Pulse Ox 97.7 F 108 H 18 121/73 96 04/10/18 11:30 04/10/18 14:00 04/10/18 11:30 04/10/18 11:30 04/10/18 11:30 Intake & Output 04/09/18 04/10/18 04/11/18 06:59 06:59 06:59 Intake Total 1000 363 Balance 1000 363 Weight 108.409 kg 108.1 kg General appearance: PRESENT: obese Eye exam: PRESENT: conjunctiva pink, PERRLA Mouth exam: PRESENT: dry mucosa, tongue midline Teeth exam: ABSENT: poor dentation Neck exam: PRESENT: full ROM Respiratory exam: PRESENT: clear to auscultation baldev, symmetrical, unlabored Cardiovascular exam: PRESENT: RRR Pulses: PRESENT: normal radial pulses, normal dorsalis pedis pul Vascular exam: PRESENT: normal capillary refill GI/Abdominal exam: PRESENT: normal bowel sounds, soft, tenderness. ABSENT: distended, firm, hernia, rigid Rectal exam: PRESENT: deferred Extremities exam: PRESENT: full ROM. ABSENT: pedal edema Musculoskeletal exam: PRESENT: ambulatory, full ROM Neurological exam: PRESENT: alert, awake, oriented to person, oriented to place, oriented to time, oriented to situation Psychiatric exam: PRESENT: appropriate affect Skin exam: PRESENT: dry, intact, pallor Results Laboratory Results: 04/10/18 04:06 04/10/18 04:06 04/10/18 04/10/18 04:06 04:06 WBC 7.2 RBC 3.51 L Hgb 11.4 L Hct 32.6 L MCV 93 MCH 32.6 MCHC 35.1 RDW 13.2 Plt Count 285 Seg Neutrophils % 78.6 H Lymphocytes % 11.8 L Monocytes % 8.6 Eosinophils % 0.6 Basophils % 0.4 Absolute Neutrophils 5.7 Absolute Lymphocytes 0.9 Absolute Monocytes 0.6 Absolute Eosinophils 0.0 Absolute Basophils 0.0 Sodium 136.2 L Potassium 3.7 Chloride 103 Carbon Dioxide 23 Anion Gap 10 BUN 22 H Creatinine 0.94 Est GFR ( Amer) > 60 Est GFR (Non-Af Amer) > 60 Glucose 119 H Calcium 8.6 Magnesium 2.0 04/09/18 03:55 Troponin I 0.018 Impressions: Abdomen/Pelvis CT 04/09/18 02:41 IMPRESSION: Nonspecific adenopathy of the posterior mediastinum/right infrahilar region as well as nonspecific adenopathy within the upper abdomen, as well as in the retroperitoneum. Mild haziness of the pancreas, correlate with pancreatic enzyme levels. Small bilateral pleural effusions. Possible mild cellulitis of the lower anterior abdomen/pelvic wall.. TECHNICAL DOCUMENTATION: Quality ID # [id number]: Final reports with documentation of one or more dose reduction techniques (e.g., Automated exposure control, adjustment of the mA and/or kV according to patient size, use of iterative reconstruction technique) copyright 2011 [employer]- All Rights Reserved Status: Imported from PACS Assessment & Plan - Diagnosis (1) Abdominal lymphadenopathy Is this a current diagnosis for this admission?: Yes Plan: Plan for EGD/colonoscopy and lymph node biopsy tomorrow N.p.o. after midnight Continue IVF D5NS (2) Diabetes Qualifiers: Diabetes mellitus type: type 2 Diabetes mellitus correction insulin use: without assistant terminal manager use Diabetes mellitus complication status: with circulatory complication Diabetes mellitus complication detail: with other circulatory complications Qualified Code(s): E11.59 - Type 2 diabetes mellitus with other circulatory complications Is this a current diagnosis for this admission?: Yes Plan: Accu-Cheks AC at bedtime Humalog sliding scale insulin N.p.o. after midnight (3) Intractable pain Is this a current diagnosis for this admission?: Yes Plan: Secondary to malignancy Dilaudid 1 mg IV every 2 hours as needed Fentanyl patch initiated today by oncology states patient appears 'much more comfortable' when compared to last 2 weeks (4) Nausea Is this a current diagnosis for this admission?: Yes Plan: Improved with hydration, pain management and antiemetics Initiated PRN Phenergan IV for intractable nausea Patient endorses anorexia due to nausea EGD/colonoscopy tomorrow (5) Dehydration Is this a current diagnosis for this admission?: Yes (6) CVD (cerebrovascular disease) Is this a current diagnosis for this admission?: Yes Plan: History of CVA in 2014, currently on Plavix Plavix on hold for last 5 days due to abdominal pain, nausea and high likelihood of surgical will discuss restarting Plavix with surgery following tomorrow's procedures - Time Time Spent with patient: 15-24 minutes Medications reviewed and adjusted accordingly: Yes Anticipated discharge: Home - Inpatient Certification Based on my medical assessment, after consideration of the patient's comorb idities, presenting symptoms, or acuity I expect that the services needed warrant INPATIENT care.: Yes I certify that my determination is in accordance with my understanding of Medicare's requirements for reasonable and necessary INPATIENT services [42 CFR 412.3e].: Yes Medical Necessity: Risk of Complication if Not Cared For in Hospital
[2018-04-10] MEDS: MEGESTROL ACETATE SUSP 400 MG/10 ML UDCUP PO SCH (17:04)
[2018-04-10] MEDS: AMITRIPTYLINE HCL 25 MG TABLET PO SCH (21:24)
[2018-04-11] MEDS: HYDROMORPHONE HCL INJ/PF 2 MG/ML AMPULE IV PRN ×7 (02:26→22:48)
[2018-04-11] MEDS: HEPARIN SOD (PORCINE) 5,000 UNIT/ML 1 ML SYRINGE SUBCUT SCH ×2 (05:11→13:41)
[2018-04-11] MEDS: LANSOPRAZOLE 30 MG TAB.RAP.DR PO SCH (05:11)
[2018-04-11 06:43] LABS: INTERNATIONAL RATION (INR) 1.05; PROTHROMBIN TIME 14.3 SEC (11.4-15.4)
[2018-04-11 06:44] LABS: PARTIAL THROMBOPLASTIN TIME 30.9 SEC (23.5-35.8)
[2018-04-11 06:47] LABS: HEMATOCRIT 34.6 % (37.9-51.0); MEAN CORPUSCULAR HEMOGLOBIN 32.3 pg (27.0-33.4); MEAN CORPUSCULAR HGB CONC 34.7 g/dL (32.0-36.0); MEAN CORPUSCULAR VOLUME 93 fl (80-97); PLATELET COUNT 319 10^3/uL (150-450); RED BLOOD COUNT 3.72 10^6/uL (4.35-5.55); RED CELL DISTRIBUTION WIDTH 13.1 % (11.5-14.0); WHITE BLOOD COUNT 6.6 10^3/uL (4.0-10.5)
[2018-04-11 07:08] LABS: ALANINE AMINOTRANSFERASE 36 U/L (21-72); ALBUMIN 2.9 g/dL (3.5-5.0); ALKALINE PHOSPHATASE 128 U/L (38-126); ANION GAP 8 (5-19); ASPARTATE AMINO TRANSFERASE 32 U/L (17-59); BILIRUBIN,DIRECT 0.3 mg/dL (0.0-0.4); BILIRUBIN,TOTAL 0.5 mg/dL (0.2-1.3); BLOOD UREA NITROGEN 22 mg/dL (7-20); CALCIUM 8.8 mg/dL (8.4-10.2); CARBON DIOXIDE 26 mmol/L (22-30); CHLORIDE 102 mmol/L (98-107); GLUCOSE 121 mg/dL (75-110); SODIUM 136.4 mmol/L (137-145); TOTAL PROTEIN 5.8 g/dL (6.3-8.2)
--- NOTE | 2018-04-11 07:51 | PDOC PROGRESS REPORT ---
Subjective Progress Note for:: 04/11/18 Subjective:: Patient remains a bit confused, but overall, states he has no new difficulties. Believes his pain is better. Still not able to tolerate any food or significant PO intake. He is NPO this morning for biopsy scheduled later this morning. Nurses report he had no difficulties with Duragesic which was placed yesterday. However, still requesting IV pain meds about q 2 hours. Reason For Visit: INTRACTABLE PAIN STAGE 4 LYMPHOMA VS PANC CA Physical Exam Vital Signs: Temp Pulse Resp BP Pulse Ox 97.7 F 93 14 134/85 H 97 04/11/18 00:00 04/11/18 02:00 04/11/18 00:00 04/11/18 00:00 04/11/18 00:00 Intake & Output 04/10/18 04/11/18 04/12/18 06:59 06:59 06:59 Intake Total 1000 823 Output Total 450 Balance 1000 373 Weight 108.1 kg 108.4 kg General appearance: PRESENT: well-developed, well-nourished Head exam: PRESENT: normocephalic Respiratory exam: PRESENT: clear to auscultation baldev, unlabored Cardiovascular exam: PRESENT: other - Irregular at times. GI/Abdominal exam: PRESENT: soft, tenderness Extremities exam: ABSENT: pedal edema Neurological exam: PRESENT: alert, awake, other - Still somewhat confused. Psychiatric exam: PRESENT: appropriate affect Focused psych exam: PRESENT: restlessness Skin exam: PRESENT: normal color Results Laboratory Results: 04/11/18 05:56 04/11/18 05:56 04/11/18 04/11/18 04/11/18 05:56 05:56 05:56 WBC 6.6 RBC 3.72 L Hgb 12.0 L Hct 34.6 L MCV 93 MCH 32.3 MCHC 34.7 RDW 13.1 Plt Count 319 Sodium 136.4 L Potassium 4.0 Chloride 102 Carbon Dioxide 26 Anion Gap 8 BUN 22 H Creatinine 1.15 Est GFR ( Amer) > 60 Est GFR (Non-Af Amer) > 60 Glucose 121 H Calcium 8.8 Total Bilirubin 0.5 AST 32 ALT 36 Alkaline Phosphatase 128 H Total Protein 5.8 L Albumin 2.9 L Blood Type A POSITIVE Antibody Screen NEGATIVE 04/09/18 03:55 Troponin I 0.018 Impressions: Abdomen/Pelvis CT 04/09/18 02:41 IMPRESSION: Nonspecific adenopathy of the posterior mediastinum/right infrahilar region as well as nonspecific adenopathy within the upper abdomen, as well as in the retroperitoneum. Mild haziness of the pancreas, correlate with pancreatic enzyme levels. Small bilateral pleural effusions. Possible mild cellulitis of the lower anterior abdomen/pelvic wall.. TECHNICAL DOCUMENTATION: Quality ID # 436: Final reports with documentation of one or more dose reduction techniques (e.g., Automated exposure control, adjustment of the mA and/or kV according to patient size, use of iterative reconstruction technique) copyright 2011 [employer]- All Rights Reserved Assessment & Plan - Diagnosis (1) Abdominal lymphadenopathy Is this a current diagnosis for this admission?: Yes Plan: For biopsy today. Plan to try to increase nutrition as much as possible after biopsy obtained. Consider starting steroids awaiting path. (2) Intractable pain Is this a current diagnosis for this admission?: Yes Plan: Continue Duragesic 25 mcg and Dilaudid IV PRN. Consider increasing Duragesic tomorrow. (3) Nausea Is this a current diagnosis for this admission?: Yes Plan: Improved. - Plan Summary Plan Summary: Once path report confirms lymphoma and type is known, may plan treatment. He may need to start first treatment in house. Continue to monitor electrolytes and blood counts and continue supportive care for now.
[2018-04-11] MEDS ORDERED: CEFAZOLIN INJ 1 GM VIAL ONE (08:52)
[2018-04-11] MEDS ORDERED: FENTANYL CITRATE INJ/PF 100 MCG/2 ML AMPUL ONE (09:27)
[2018-04-11] MEDS ORDERED: ONDANSETRON HCL INJ/PF 4 MG/2 ML SDV ONE (09:27)
[2018-04-11] MEDS ORDERED: MIDAZOLAM 2 MG/2 ML INJ ONE (09:27)
[2018-04-11] MEDS ORDERED: LIDOCAINE 2% INJ-PF (100 MG/5 ML) SYRINGE ONE (09:27)
[2018-04-11] MEDS ORDERED: PROPOFOL INJ 200 MG/20 ML VIAL IV ONE (09:28)
[2018-04-11] MEDS ORDERED: FENTANYL CITRATE INJ/PF 100 MCG/2 ML AMPUL IV PRN ×3 (10:08)
[2018-04-11] MEDS ORDERED: MEPERIDINE HCL/PF INJ 25 MG/1 ML DISP.SYRIN IV PRN (10:08)
[2018-04-11] MEDS ORDERED: DIPHENHYDRAMINE HCL 50 MG/ML VIAL IV PRN (10:08)
[2018-04-11] MEDS ORDERED: ONDANSETRON HCL INJ/PF 4 MG/2 ML SDV IV PRN (10:08)
[2018-04-11] MEDS ORDERED: PROMETHAZINE HCL INJ 25 MG/1 ML VIAL IV PRN ×2 (10:08)
[2018-04-11] MEDS ORDERED: OXYCODONE-ACETAMINOPHEN 5-325 MG TABLET PO PRN ×2 (10:08)
[2018-04-11] MEDS ORDERED: MICROFIBRILLAR COLLAGEN 1 GM PACK ONE (12:24)
[2018-04-11] MEDS ORDERED: LIDOCAINE 1%/EPINEPHRINE INJ 20 ML VIAL ONE (12:24)
[2018-04-11] MEDS: ALLOPURINOL 300 MG TABLET PO SCH (13:11)
--- NOTE | 2018-04-11 13:29 | Operative Report ---
Operative Report DATE OF SURGERY: 04/11/18 PREOPERATIVE DIAGNOSIS: 1. Chronic abdominal pain. 2. Constitutional symptom s. 3. Extensive retroperitoneal lymphadenopathy. 4. Palpable left clavicular node POSTOPERATIVE DIAGNOSIS: Same with mild distal esophagitis; incomplete bowel prep; pandiverticulosis OPERATION: 1. Focus of center left neck. 2. Ultrasound directed left open neck excisional biopsy x2 lymph nodes. 3. Esophagogastroduodenoscopy with biopsies of the GE junction. 4. Colonoscopy to ascending colon SURGEON: CANDIS DREW ANESTHESIA: LMAC TISSUE REMOVED OR ALTERED: Lymph nodes x2 left neck; GE junction mucosal biopsy COMPLICATIONS: None ESTIMATED BLOOD LOSS: Scant INTRAOPERATIVE FINDINGS: See below PROCEDURE: The patient was seen in the preop holding area where the left neck was reexamined, and the palpable mass at the base of the left neck and supraclavic ular fossa, consistent with low compartment 5 lymph node confirmed. Area marked. Patient taken to the operating room where LMAC anesthesia was induced. the left neck was exposed, prepped and draped in sterile fashion Surgical plan surgical timeout were conducted. Using focused ultrasound, real-time, we identified 2 lymph nodes in the supraclavicular fossa felt suitable for biopsy. The first, the palpable lymph node was anterior low compartment 5, and the second lymph node deeper and posterior, same compartment. The first lymph node was approximate 2.2 cm in diameter, well-circumscribed; the posterior lymph node was slightly smaller with a regular border. Approximately 4 cm incision was made overlying these 2 lymph nodes at the base of the left neck posterior to the sternocleidomastoid muscle. Platysma divided as encountered. Deeper tissue, primarily fatty tissue, divided carefully with electrocautery, with the division of only 1 small intersecting vein. Superficial nerves were identified and preserved during the dissection. The anterior, large lymph node was identified first again using ultrasound as a guide. A 2-0 Vicryl sutures placed in the substance of the lymph node, the lymph node gently extirpated from the neck, electrocautery for dissection. This was labeled as left cervical lymph node, anterior. Specimen sent to pathology, and touch prep by Dr. Salas suggested atypical duration of cells. For completeness sake we felt that removal of the second lymph node, slightly smaller with irregular border. Using ultrasound left cervical lymph node a guide, again with hemostat and electrocautery, we are able to identify the second lymph node again in the deeper tissue of the left supraclavicular fossa. A 2-0 Vicryl sutures placed in the substance of the node, the node extirpated in its entirety and and was sent as left cervical lymph node, posterior. It too was analyzed by Dr. Salas, pathologist, and felt to represent malignancy. We felt this portion of the operation was complete. Hemostasis was felt to be secure. Avitene slurry was placed in the recesses of the wound and the wound closed in layers with 3-0 Vicryl benzoin and Steri-Strips. Patient remained hemodynamically stable with good saturations. The endoscopy team came and now performed upper endoscopy. Mouthpiece inserted, and the flexible adult upper endoscope was advanced to the oropharynx, down the esophagus to the stomach into the first and second portions of the duodenum. There was no evidence of tumor stricture bleeding polyp or clots. There was a significant amount of retained gastric contents, mostly bile. All the bile was aspirated. Scope was brought back to the pylorus which was normal. The scope was retroflexed in the stomach and a good look at the GE junction obtained which was without hiatal hernia. There was some irregularity of the Z line, and a biopsy was taken from the esophageal side of the GE junction and sent as mucosal biopsy. Bleeding was minimal. We re-advance the scope into the body of the stomach and again confirmed there was no pathology seen. Biopsies were obtained. The scope was brought back out through the esophagus again observing fairly normal mucosa. The hypopharynx was unremarkable. We now set the patient up for colonoscopy. Instrumentation was rearranged, and patient placed in the supine position, legs frog legged. Rectal exam was performed; the posterior surface of the prostate gland was enlarged. The flexible pediatric colonoscope was advanced to the anorectal canal all the way to the ascending colon. Unfortunately the patient could not tolerate a bowel prep so there was a significant amount of large stool. Therefore we were unable to the patient all the way to the cecum. We dodged a lot of the large stool fragments. The patient did have pandiverticulosis. No evidence of bleeding tumor stricture polyp or clot identified. Again this was an incomplete study on a poorly prepped colon. Scope was withdrawn. No other pathology seen. He tolerated the procedure well, taken recovery room stable condition.
[2018-04-11] MEDS ORDERED: CEFAZOLIN 1 GM/D5W RTU 1 GM/50 ML RTUPB IV PRN (14:06)
[2018-04-11] MEDS: DEXTROSE 5%-LACTATED RINGERS 1,000 ML IV PRN ×2 (15:19→22:44)
[2018-04-11] MEDS: MEGESTROL ACETATE SUSP 400 MG/10 ML UDCUP PO SCH (17:36)
[2018-04-11] MEDS: AMITRIPTYLINE HCL 25 MG TABLET PO SCH (22:41)
[2018-04-12] MEDS: HYDROMORPHONE HCL INJ/PF 2 MG/ML AMPULE IV PRN ×6 (01:42→22:19)
--- NOTE | 2018-04-12 04:55 | PDOC PROGRESS REPORT ---
Subjective Progress Note for:: 04/11/18 Subjective:: 72 y.o. M with a PMH of DM and HTN presented to [facility] for abdominal pain, nausea and vomiting x [address] performed outpatient revealed widespread lymphadenopathy consistent with lymphoma. PET/CT and biopsy had been arranged as outpatient, but patient's abdominal pain became so severe he presented to the ED for symptom management. Admitted to hospitalist service for pain management. EGD, colonoscopy and biopsy done today. The patient was seen this afternoon on rounds following his procedure. He is resting in bed. When asked how he is feeling, the patient stated "nothing exciting to report." The patient statse he has persistent abdominal pain, but that it is "tolerable". Denies nausea, vomiting or diarrhea. Attempted to encourage patient to drink juice/liquids, patient said he would attempt to do so but he has little/no appetite. Continue with IV Dilaudid as needed, fentanyl patch added to regimen today by Dr. White. Awaiting results of biopsies done today. Reason For Visit: INTRACTABLE PAIN STAGE 4 LYMPHOMA VS PANC CA Physical Exam Vital Signs: Temp Pulse Resp BP Pulse Ox 97.2 F 99 16 107/67 96 04/11/18 17:10 04/11/18 17:10 04/11/18 17:10 04/11/18 17:10 04/11/18 17:10 Intake & Output 04/10/18 04/11/18 04/12/18 06:59 06:59 06:59 Intake Total 9305 895 6334 Output Total 450 60 Balance 6144 923 1418 Weight 108.1 kg 108.4 kg General appearance: PRESENT: no acute distress, obese Eye exam: PRESENT: conjunctiva pink, PERRLA Mouth exam: PRESENT: dry mucosa, tongue midline Neck exam: PRESENT: full ROM Respiratory exam: PRESENT: clear to auscultation baldev, symmetrical, unlabored Cardiovascular exam: PRESENT: RRR Pulses: PRESENT: normal radial pulses Vascular exam: PRESENT: pallor GI/Abdominal exam: PRESENT: hypoactive bowel sounds, soft, tenderness. ABSENT: distended Rectal exam: PRESENT: deferred Extremities exam: PRESENT: full ROM Musculoskeletal exam: PRESENT: ambulatory - with assistance and walker, full ROM Neurological exam: PRESENT: alert, awake, oriented to person, oriented to place, oriented to time, oriented to situation Psychiatric exam: PRESENT: appropriate affect Skin exam: PRESENT: dry, intact, pallor Results Laboratory Results: 04/11/18 05:56 04/11/18 05:56 04/11/18 04/11/18 04/11/18 05:56 05:56 05:56 WBC 6.6 RBC 3.72 L Hgb 12.0 L Hct 34.6 L MCV 93 MCH 32.3 MCHC 34.7 RDW 13.1 Plt Count 319 Sodium 136.4 L Potassium 4.0 Chloride 102 Carbon Dioxide 26 Anion Gap 8 BUN 22 H Creatinine 1.15 Est GFR ( Amer) > 60 Est GFR (Non-Af Amer) > 60 Glucose 121 H Calcium 8.8 Total Bilirubin 0.5 AST 32 ALT 36 Alkaline Phosphatase 128 H Total Protein 5.8 L Albumin 2.9 L Blood Type A POSITIVE Antibody Screen NEGATIVE 04/09/18 03:55 Troponin I 0.018 Impressions: Abdomen/Pelvis CT 04/09/18 02:41 IMPRESSION: Nonspecific adenopathy of the posterior mediastinum/right infrahilar region as well as nonspecific adenopathy within the upper abdomen, as well as in the retroperitoneum. Mild haziness of the pancreas, correlate with pancreatic enzyme levels. Small bilateral pleural effusions. Possible mild cellulitis of the lower anterior abdomen/pelvic wall.. TECHNICAL DOCUMENTATION: Quality ID # 436: Final reports with documentation of one or more dose reduction techniques (e.g., Automated exposure control, adjustment of the mA and/or kV according to patient size, use of iterative reconstruction technique) copyright 2011 [employer]- All Rights Reserved Status: Imported from PACS Assessment & Plan - Diagnosis (1) Abdominal lymphadenopathy Is this a current diagnosis for this admission?: Yes Plan: Abdominal lymphadenopathy seen on outpatient CT EGD/colonoscopy and lymph node biopsy done today Preliminary results should result in 24-48 hrs PRN analgesia and TD fentanyl patch Continue IVF D5NS (2) Diabetes Qualifiers: Diabetes mellitus type: type 2 Diabetes mellitus jail insulin use: without terminal carman use Diabetes mellitus complication status: with circulatory complication Diabetes mellitus complication detail: with other circulatory complications Qualified Code(s): E11.59 - Type 2 diabetes mellitus with other circulatory complications Is this a current diagnosis for this admission?: Yes Plan: Accu-Cheks AC at bedtime Humalog sliding scale insulin (3) Intractable pain Is this a current diagnosis for this admission?: Yes Plan: Secondary to malignancy Dilaudid 1 mg IV every 2 hours as needed Fentanyl patch initiated today by oncology Patient states he is more comfortable today but still endorses a "fair amount of pain" (4) Nausea Is this a current diagnosis for this admission?: Yes Plan: Improved with hydration, pain management and antiemetics Initiated PRN Phenergan IV for intractable nausea Patient endorses anorexia due to nausea EGD/colonoscopy tomorrow (5) Dehydration Is this a current diagnosis for this admission?: Yes Plan: Secondary to N/V anorexia Maintenance IVF Renal function slightly worse 0.95-->1.1 but still making urine (6) CVD (cerebrovascular disease) Is this a current diagnosis for this admission?: Yes Plan: History of CVA in 2015, currently on Plavix Plavix on hold for last 5 days due to abdominal pain, nausea and high likelihood of surgical will discuss restarting Plavix with surgery following tomorrow's procedures - Time Time Spent with patient: 15-24 minutes Medications reviewed and adjusted accordingly: Yes Anticipated discharge: Home - Inpatient Certification Based on my medical assessment, after consideration of the patient's comorbidities, presenting symptoms, or acuity I expect that the services needed warrant INPATIENT care.: Yes Medical Necessity: Need for Pain Control
[2018-04-12] MEDS: DEXTROSE 5%-LACTATED RINGERS 1,000 ML IV PRN ×2 (05:24→12:27)
[2018-04-12] MEDS: LANSOPRAZOLE 30 MG TAB.RAP.DR PO SCH (05:42)
--- NOTE | 2018-04-12 08:33 | PDOC PROGRESS REPORT ---
Subjective Progress Note for:: 04/12/18 Subjective:: Patient with at bedside. No new complaints. Still requiring pain meds IV q 2-3 hours. Underwent biopsy yesterday. Still not able to eat anything, but drinking water without difficulty. He is up in Joe Chair today, but not able to walk much. Reason For Visit: INTRACTABLE PAIN STAGE 4 LYMPHOMA VS PANC CA Physical Exam Vital Signs: Temp Pulse Resp BP Pulse Ox 97.9 F 94 16 110/73 94 04/12/18 05:00 04/12/18 07:00 04/12/18 05:00 04/12/18 05:00 04/12/18 05:00 Intake & Output 04/11/18 04/12/18 04/13/18 06:59 06:59 06:59 Intake Total 823 3540 Output Total 450 860 Balance 373 2680 Weight 108.4 kg 105.1 kg General appearance: PRESENT: well-developed, well-nourished Head exam: PRESENT: normocephalic Respiratory exam: PRESENT: unlabored GI/Abdominal exam: PRESENT: distended Extremities exam: ABSENT: pedal edema Neurological exam: PRESENT: alert, awake Psychiatric exam: PRESENT: appropriate affect Skin exam: PRESENT: normal color Results Laboratory Results: 04/11/18 05:56 04/11/18 05:56 04/09/18 03:55 Troponin I 0.018 Impressions: Abdomen/Pelvis CT 04/09/18 02:41 IMPRESSION: Nonspecific adenopathy of the posterior mediastinum/right infrahilar region as well as nonspecific adenopathy within the upper abdomen, as well as in the retroperitoneum. Mild haziness of the pancreas, correlate with pancreatic enzyme levels. Small bilateral pleural effusions. Possible mild cellulitis of the lower anterior abdomen/pelvic wall.. TECHNICAL DOCUMENTATION: Quality ID # 436: Final reports with documentation of one or more dose reduction techniques (e.g., Automated exposure control, adjustment of the mA and/or kV according to patient size, use of iterative reconstruction technique) copyright 2011 [email or web address]- All Rights Reserved Assessment & Plan - Diagnosis (1) Abdominal lymphadenopathy Is this a current diagnosis for this admission?: Yes Plan: s/p biopsy yesterday. Await preliminary report. (2) Intractable pain Is this a current diagnosis for this admission?: Yes Plan: I will increase duragesic today to 50 mcg. Continue IV dilaudid for now. Consider transitioning to PO dilaudid. (3) Nausea Is this a current diagnosis for this admission?: Yes Plan: Currently under control. He will try nutritional supplements today. - Plan Summary Plan Summary: I discussed plan with patient and . Still awaiting pathology report. Patient will need to be ambulatory and able to eat prior to discharge. I do not anticipate this happening until I can start some treatment, which cannot start without path report.
[2018-04-12 09:20] LABS: HEMATOCRIT 36.4 % (37.9-51.0); HEMOGLOBIN 12.6 g/dL (13.5-17.0); MEAN CORPUSCULAR HEMOGLOBIN 32.2 pg (27.0-33.4); MEAN CORPUSCULAR HGB CONC 34.6 g/dL (32.0-36.0); MEAN CORPUSCULAR VOLUME 93 fl (80-97); PLATELET COUNT 317 10^3/uL (150-450); RED CELL DISTRIBUTION WIDTH 13.4 % (11.5-14.0)
[2018-04-12] MEDS: ALLOPURINOL 300 MG TABLET PO SCH (09:20)
[2018-04-12] MEDS: ONDANSETRON HCL INJ/PF 4 MG/2 ML SDV IV PRN ×2 (09:23→15:19)
[2018-04-12 09:38] LABS: ALANINE AMINOTRANSFERASE 30 U/L (21-72); ALBUMIN 3.1 g/dL (3.5-5.0); ALKALINE PHOSPHATASE 134 U/L (38-126); ANION GAP 9 (5-19); ASPARTATE AMINO TRANSFERASE 26 U/L (17-59); BILIRUBIN,DIRECT 0.2 mg/dL (0.0-0.4); BILIRUBIN,TOTAL 0.5 mg/dL (0.2-1.3); BLOOD UREA NITROGEN 22 mg/dL (7-20); CALCIUM 8.9 mg/dL (8.4-10.2); CARBON DIOXIDE 27 mmol/L (22-30); CHLORIDE 98 mmol/L (98-107); GLUCOSE 154 mg/dL (75-110); POTASSIUM 3.5 mmol/L (3.6-5.0); SODIUM 133.6 mmol/L (137-145); TOTAL PROTEIN 6.2 g/dL (6.3-8.2)
[2018-04-12] MEDS ORDERED: LANSOPRAZOLE 30 MG TAB.RAP.DR PO ONE (10:00)
[2018-04-12] MEDS ORDERED: FENTANYL 50 MCG/HR PATCH.TD72 TD SCH (10:00)
--- NOTE | 2018-04-12 12:44 | RADIOLOGY REPORT (SQ) ---
EXAM DESCRIPTION: NM MUGA REST COMPLETED DATE/TIME: 04/12/2018 12:31 pm REASON FOR STUDY: Baseline LVEF prior to chemo COMPARISON: Chest films 04/07/2018 RADIONUCLIDE AND DOSE: 26.2 mCi technetium 99m labeled red blood cells The route of agent administration: Intravenous TECHNIQUE: Following administration of the radionuclide, gated images of the heart are obtained in t hree projections. Left ventricular functional analysis performed. LIMITATIONS: None. FINDINGS: LEFT VENTRICULAR FUNCTION: EJECTION FRACTION: 45%. END-DIASTOLIC VOLUME: 132 mL. END-SYSTOLIC VOLUME: 64 mL. WALL MOTION: Globally depressed wall motion OTHER: No other significant finding. IMPRESSION: Left ventricular ejection fraction of 45% Mildly dilated left ventricle with globally depressed wall motion TECHNICAL DOCUMENTATION: JOB ID: [id number] [employer]- All Rights Reserved Reading location - IP/workstation name: [email or web address]
[2018-04-12] MEDS: LORAZEPAM INJ 2 MG/1 ML VIAL IV PRN (17:44)
[2018-04-12] MEDS: MEGESTROL ACETATE SUSP 400 MG/10 ML UDCUP PO SCH (19:49)
--- NOTE | 2018-04-12 21:33 | PDOC PROGRESS REPORT ---
Subjective Progress Note for:: 04/12/18 Subjective:: 72 y.o. M with a PMH of DM and HTN presented to [facility] for abdominal pain, nausea and vomiting x [address] performed outpatient revealed widespread lymphadenopathy consistent with lymphoma. PET/CT and biopsy had been arranged as outpatient, but patient's abdominal pain became so severe he presented to the ED for symptom management. Admitted to hospitalist service for pain management. EGD, colonoscopy and biopsy done today. The patient was seen this afternoon on rounds. He is resting in the bedside recliner. The patient states he has persistent abdominal pain, but that it is "tolerable". He complains of persistent nausea, that "if I even think about eating, I feel sick." Denies vomiting or diarrhea. Patient and do not want sedating antinausea medications (phenergan, atarax, ativan, etc.) Continue with IV Dilaudid as needed, fentanyl patch dosage was increased today by Dr. White. MARCOS salcido and compazine. Awaiting results of biopsies Reason For Visit: INTRACTABLE PAIN STAGE 4 LYMPHOMA VS PANC CA Physical Exam Vital Signs: Temp Pulse Resp BP Pulse Ox 98.1 F 87 16 136/79 H 97 04/12/18 15:28 04/12/18 15:28 04/12/18 15:28 04/12/18 15:28 04/12/18 15:28 Intake & Output 04/11/18 04/12/18 04/13/18 06:59 06:59 06:59 Intake Total 823 3540 1300 Output Total 450 860 300 Balance 373 2680 1000 Weight 108.4 kg 105.1 kg General appearance: PRESENT: morbidly obese Eye exam: PRESENT: conjunctiva pale, PERRLA Mouth exam: PRESENT: moist, tongue midline Neck exam: PRESENT: full ROM Respiratory exam: PRESENT: clear to auscultation baldev, symmetrical, unlabored Cardiovascular exam: PRESENT: RRR Pulses: PRESENT: normal radial pulses, normal dorsalis pedis pul Vascular exam: PRESENT: pallor GI/Abdominal exam: PRESENT: hypoactive bowel sounds, soft, tenderness. ABSENT: distended Rectal exam: PRESENT: deferred Extremities exam: PRESENT: full ROM Musculoskeletal exam: PRESENT: ambulatory - with assistance and walker, full ROM Neurological exam: PRESENT: alert, awake, oriented to person, oriented to place, oriented to time, oriented to situation Psychiatric exam: PRESENT: appropriate affect Skin exam: PRESENT: dry, intact, pallor Results Laboratory Results: 04/12/18 08:56 04/12/18 08:56 04/12/18 04/12/18 04/12/18 08:56 08:56 08:56 WBC 7.0 RBC 3.90 L Hgb 12.6 L Hct 36.4 L MCV 93 MCH 32.2 MCHC 34.6 RDW 13.4 Plt Count 317 Sodium 133.6 L Potassium 3.5 L Chloride 98 Carbon Dioxide 27 Anion Gap 9 BUN 22 H Creatinine 1.09 Est GFR ( Amer) > 60 Est GFR (Non-Af Amer) > 60 Glucose 154 H Calcium 8.9 Magnesium 1.8 Total Bilirubin 0.5 AST 26 ALT 30 Alkaline Phosphatase 134 H Total Protein 6.2 L Albumin 3.1 L Prostate Specific Ag 19.500 H 04/09/18 03:55 Troponin I 0.018 Impressions: Abdomen/Pelvis CT 04/09/18 02:41 IMPRESSION: Nonspecific adenopathy of the posterior mediastinum/right infrahilar region as well as nonspecific adenopathy within the upper abdomen, as well as in the retroperitoneum. Mild haziness of the pancreas, correlate with pancreatic enzyme levels. Small bilateral pleural effusions. Possible mild cellulitis of the lower anterior abdomen/pelvic wall.. TECHNICAL DOCUMENTATION: Quality ID # 436: Final reports with documentation of one or more dose reduction techniques (e.g., Automated exposure control, adjustment of the mA and/or kV according to patient size, use of iterative reconstruction technique) copyright 2011 [employer]- All Rights Reserved [facility] [place]/12/18 00:00 IMPRESSION: Left ventricular ejection fraction of 45% Mildly dilated left ventricle with globally depressed wall motion Status: Imported from PACS Assessment & Plan - Diagnosis (1) Abdominal lymphadenopathy Is this a current diagnosis for this admission?: Yes Plan: Abdominal lymphadenopathy seen on outpatient CT EGD/colonoscopy and lymph node biopsy done yesterday Awaiting preliminary results from Dr. White PRN analgesia and TD fentanyl patch Continue IVF D5NS Megace for appetite stimulation (2) Diabetes Qualifiers: Diabetes mellitus type: type 2 Diabetes mellitus long term care pharmacist insulin use: without senior care use Diabetes mellitus complication status: with circulatory complication Diabetes mellitus complication detail: with other circulatory complications Qualified Code(s): E11.59 - Type 2 diabetes mellitus with other circulatory complications Is this a current diagnosis for this admission?: Yes Plan: Accu-Cheks AC at bedtime Humalog sliding scale insulin (3) Intractable pain Is this a current diagnosis for this admission?: Yes Plan: Secondary to malignancy Dilaudid 1 mg IV every 2 hours as needed Fentanyl patch dose increased today by oncology Patient states he is more comfortable today but still endorses abdominal pain (4) Nausea Is this a current diagnosis for this admission?: Yes Plan: Persistent Secondary to malignancy PRN compazine and zofran Patient endorses anorexia due to nausea (5) Dehydration Is this a current diagnosis for this admission?: Yes Plan: Secondary to N/V anorexia Maintenance IVF Renal function relatively unchanged 0.95-->1.1-->1.08 but still making urine (6) CVD (cerebrovascular disease) Is this a current diagnosis for this admission?: Yes Plan: History of CVA in 2014, currently on Plavix Plavix on hold for last 5 days due to abdominal pain, nausea and high likelihood of surgical intervention and/or malignancy - Time Time Spent with patient: 15-24 minutes Medications reviewed and adjusted accordingly: Yes Anticipated discharge: Home - Inpatient Certification Based on my medical assessment, after consideration of the patient's comorbidities, presenting symptoms, or acuity I expect that the services needed warrant INPATIENT care.: Yes I certify that my determination is in accordance with my understanding of Medicare's requirements for reasonable and necessary INPATIENT services [42 CFR 412.3e].: Yes Medical Necessity: Risk of Complication if Not Cared For in Hospital
--- NOTE | 2018-04-12 21:39 | RADIOLOGY REPORT (SQ) ---
EXAM DESCRIPTION: CT CHEST WITH IV CONTRAST COMPLETED DATE/TME: 04/12/2018 00:00 CLINICAL HISTORY: 72 years, Male, initial staging prostate cancer COMPARISON: None. TECHNIQUE: Axial images of the chest were performed utilizing intravenous contrast, with sagittal and coronal reformatted images. Images stored on PACS. All CT scanners at this facility use dose modulation, iterative reconstruction, and/or weight based dosing when appropriate to reduce radiation dose to as low as reasonably achievable (ALARA). [facility]: Dose Right [facility]: CareDose [facility]: Dose Right [facility]: Teradose 4D [facility]: [employer] LIMITATIONS: None. FINDINGS: There is considerable mediastinal adenopathy. There is hilar adenopathy, right side more apparent than left. There are moderate-sized bilateral pleural effusions. There is coronary artery calcification. No evidence of pulmonary embolus. No evidence of aortic dissection. Images of the upper abdomen show mild bilateral adrenal enlargement. There is no evidence of blastic bony metastases. IMPRESSION: Mediastinal and hilar adenopathy. Metastatic disease must be considered. Bilateral pleural effusions. Coronary artery calcification. Mild bilateral adrenal enlargement. This may merely represent adrenal hyperplasia, however, adrenal metastasis cannot entirely be excluded. TECHNICAL DOCUMENTATION: Quality ID # 436: Final reports with documentation of one or more dose reduction techniques (e.g., Automated exposure control, adjustment of the mA and/or kV according to patient size, use of iterative reconstruction technique) copyright 2011 [employer]- All Rights Reserved
[2018-04-12] MEDS: AMITRIPTYLINE HCL 25 MG TABLET PO SCH (22:20)
[2018-04-12] MEDS: HEPARIN SOD (PORCINE) 5,000 UNIT/ML 1 ML SYRINGE SUBCUT SCH (22:20)
[2018-04-13] MEDS: HYDROMORPHONE HCL INJ/PF 2 MG/ML AMPULE IV PRN ×4 (04:04→23:52)
[2018-04-13] MEDS: HEPARIN SOD (PORCINE) 5,000 UNIT/ML 1 ML SYRINGE SUBCUT SCH ×3 (05:57→22:22)
[2018-04-13 08:19] LABS: HEMATOCRIT 36.5 % (37.9-51.0); HEMOGLOBIN 12.9 g/dL (13.5-17.0); MEAN CORPUSCULAR HEMOGLOBIN 32.7 pg (27.0-33.4); MEAN CORPUSCULAR HGB CONC 35.5 g/dL (32.0-36.0); MEAN CORPUSCULAR VOLUME 92 fl (80-97); PLATELET COUNT 302 10^3/uL (150-450); RED BLOOD COUNT 3.96 10^6/uL (4.35-5.55); RED CELL DISTRIBUTION WIDTH 13.3 % (11.5-14.0); WHITE BLOOD COUNT 8.2 10^3/uL (4.0-10.5)
[2018-04-13 08:33] LABS: ALANINE AMINOTRANSFERASE 32 U/L (21-72); ALBUMIN 3.2 g/dL (3.5-5.0); ALKALINE PHOSPHATASE 134 U/L (38-126); ANION GAP 10 (5-19); ASPARTATE AMINO TRANSFERASE 28 U/L (17-59); BILIRUBIN,DIRECT 0.2 mg/dL (0.0-0.4); BILIRUBIN,TOTAL 0.5 mg/dL (0.2-1.3); BLOOD UREA NITROGEN 20 mg/dL (7-20); CALCIUM 9.2 mg/dL (8.4-10.2); CARBON DIOXIDE 25 mmol/L (22-30); CHLORIDE 97 mmol/L (98-107); GLUCOSE 153 mg/dL (75-110); POTASSIUM 3.7 mmol/L (3.6-5.0); SODIUM 131.7 mmol/L (137-145); TOTAL PROTEIN 6.5 g/dL (6.3-8.2)
[2018-04-13] MEDS ORDERED: DEXAMETHASONE 4 MG TABLET PO SCH (10:00)
[2018-04-13] MEDS: LANSOPRAZOLE 30 MG TAB.RAP.DR PO SCH (10:58)
[2018-04-13] MEDS: ALLOPURINOL 300 MG TABLET PO SCH (10:58)
[2018-04-13] MEDS: BICALUTAMIDE 50 MG TABLET PO SCH (10:59)
[2018-04-13] MEDS: DEXAMETHASONE SOD PHOSPHATE INJ 4 MG/1 ML VIAL IV SCH ×2 (12:11→20:31)
--- NOTE | 2018-04-13 12:54 | PDOC PROGRESS REPORT ---
Subjective Progress Note for:: 04/13/18 Subjective:: Patient still very nauseous, sitting on the side of the bed, has trash can close by because of nausea vomiting. Reason For Visit: INTRACTABLE PAIN STAGE 4 LYMPHOMA VS PANC CA Physical Exam Vital Signs: Temp Pulse Resp BP Pulse Ox 98.1 F 110 H 17 110/70 93 04/13/18 11:31 04/13/18 11:31 04/13/18 11:31 04/13/18 11:31 04/13/18 11:31 Intake & Output 04/12/18 04/13/18 04/14/18 06:59 06:59 07:59 Intake Total 3540 1390 1000 Output Total 860 385 Balance 2680 1005 1000 Weight 105.1 kg 110.4 kg General appearance: PRESENT: no acute distress, well-developed, well-nourished Head exam: PRESENT: atraumatic, normocephalic Eye exam: PRESENT: conjunctiva pink, EOMI, PERRLA. ABSENT: scleral icterus Ear exam: PRESENT: normal external ear exam Mouth exam: PRESENT: moist, tongue midline Neck exam: ABSENT: carotid bruit, JVD, lymphadenopathy, thyromegaly Respiratory exam: PRESENT: clear to auscultation baldev. ABSENT: rales, rhonchi, wheezes Cardiovascular exam: PRESENT: RRR. ABSENT: diastolic murmur, rubs, systolic murmur Pulses: PRESENT: normal dorsalis pedis pul Vascular exam: PRESENT: normal capillary refill GI/Abdominal exam: PRESENT: normal bowel sounds, soft. ABSENT: distended, guarding, mass, organolmegaly, rebound, tenderness Rectal exam: PRESENT: deferred Extremities exam: PRESENT: full ROM. ABSENT: calf tenderness, clubbing, pedal edema Neurological exam: PRESENT: alert, awake, oriented to person, oriented to place, oriented to time, oriented to situation, CN II-XII grossly intact. ABSENT: motor sensory deficit Psychiatric exam: PRESENT: appropriate affect, normal mood. ABSENT: homicidal ideation, suicidal ideation Skin exam: PRESENT: dry, intact, warm. ABSENT: cyanosis, rash Results Laboratory Results: 04/13/18 07:25 04/13/18 07:25 04/12/18 04/13/18 04/13/18 08:56 07:25 07:25 WBC 8.2 RBC 3.96 L Hgb 12.9 L Hct 36.5 L MCV 92 MCH 32.7 MCHC 35.5 RDW 13.3 Plt Count 302 Sodium 131.7 L Potassium 3.7 Chloride 97 L Carbon Dioxide 25 Anion Gap 10 BUN 20 Creatinine 1.01 Est GFR ( Amer) > 60 Est GFR (Non-Af Amer) > 60 Glucose 153 H Calcium 9.2 Magnesium 1.7 Total Bilirubin 0.5 AST 28 ALT 32 Alkaline Phosphatase 134 H Total Protein 6.5 Albumin 3.2 L Prostate Specific Ag 19.500 H 04/09/18 03:55 Troponin I 0.018 Impressions: Abdomen/Pelvis CT 04/09/18 02:41 IMPRESSION: Nonspecific adenopathy of the posterior mediastinum/right infrahilar region as well as nonspecific adenopathy within the upper abdomen, as well as in the retroperitoneum. Mild haziness of the pancreas, correlate with pancreatic enzyme levels. Small bilateral pleural effusions. Possible mild cellulitis of the lower anterior abdomen/pelvic wall.. TECHNICAL DOCUMENTATION: Quality ID # 436: Final reports with documentation of one or more dose reduction techniques (e.g., Automated exposure control, adjustment of the mA and/or kV according to patient size, use of iterative reconstruction technique) copyright 2010 [employer]- All Rights Reserved Chest CT 04/12/18 00:00 IMPRESSION: Mediastinal and hilar adenopathy. Metastatic disease must be considered. Bilateral pleural effusions. Coronary artery calcification. Mild bilateral adrenal enlargement. This may merely represent adrenal hyperplasia, however, adrenal metastasis cannot entirely be excluded. TECHNICAL DOCUMENTATION: Quality ID # 436: Final reports with documentation of one or more dose reduction techniques (e.g., Automated exposure control, adjustment of the mA and/or kV according to patient size, use of iterative reconstruction technique) copyright 2010 [employer]- All Rights Reserved MUGA 04/12/18 00:00 IMPRESSION: Left ventricular ejection fraction of 45% Mildly dilated left ventricle with globally depressed wall motion Status: Image reviewed by me Assessment & Plan - Diagnosis (1) Prostate cancer metastatic to intraabdominal lymph node Is this a current diagnosis for this admission?: Yes Plan: Now patient has known metastatic prostate cancer, initiated on Casodex, bone scan is now pending. In 1-2 weeks he will initiate on Lupron. Today I had a long discussion with patient and family about this diagnosis and what to expect in the future. Today spent 45 minutes in discussion and coordination of care. (2) Nausea Is this a current diagnosis for this admission?: Yes Plan: Severe, patient has been started on dexamethasone as well as started Phenergan as well. - Time Time Spent with patient: 35 or more minutes - Inpatient Certification Based on my medical assessment, after consideration of the patient's comorbidities, presenting symptoms, or acuity I expect that the services needed warrant INPATIENT care.: Yes I certify that my determination is in accordance with my understanding of Medicare's requirements for reasonable and necessary INPATIENT services [42 CFR 412.3e].: Yes Medical Necessity: Need For IV Fluids, Risk of Complication if Not Cared For in Hospital
[2018-04-13] MEDS: PROMETHAZINE HCL INJ 25 MG/1 ML VIAL IV PRN (16:10)
[2018-04-13] MEDS: DEXTROSE 5%-1/2 NORMAL SALINE 1,000 ML IV PRN (17:36)
[2018-04-13] MEDS: ONDANSETRON HCL INJ/PF 4 MG/2 ML SDV IV PRN (18:10)
[2018-04-13] MEDS: LORAZEPAM INJ 2 MG/1 ML VIAL IV PRN ×2 (18:10→22:23)
--- NOTE | 2018-04-13 18:25 | PDOC PROGRESS REPORT ---
Subjective Progress Note for:: 04/13/18 Subjective:: 72 y.o. M with a PMH of DM and HTN presented to [facility] for abdominal pain, nausea and vomiting x [address] performed outpatient revealed widespread lymphadenopathy consistent with lymphoma. PET/CT and biopsy had been arranged as outpatient, but patient's abdominal pain became so severe he presented to the ED for symptom management. Admitted to hospitalist service for pain management. EGD, colonoscopy and biopsy done. Diagnosis is metastatic prostate cancer. The patient was seen this afternoon on rounds. He is resting in the bed. Today he is very drowsy. He had received IV phergan just prior to the interview. reports he has persistent nausea and vomited this morning after taking his PO medication. PRN zofran and compazine. Started PRN phenergan today. Currently awaiting bone scan Reason For Visit: INTRACTABLE PAIN STAGE 4 LYMPHOMA VS PANC CA Physical Exam Vital Signs: Temp Pulse Resp BP Pulse Ox 98.1 F 110 H 17 110/70 93 04/13/18 11:31 04/13/18 11:31 04/13/18 11:31 04/13/18 11:31 04/13/18 11:31 Intake & Output 04/12/18 04/13/18 04/14/18 06:59 06:59 07:59 Intake Total 3540 1390 1000 Output Total 860 385 Balance 2680 1005 1000 Weight 105.1 kg 110.4 kg Results Laboratory Results: 04/13/18 07:25 04/13/18 07:25 04/13/18 04/13/18 07:25 07:25 WBC 8.2 RBC 3.96 L Hgb 12.9 L Hct 36.5 L MCV 92 MCH 32.7 MCHC 35.5 RDW 13.3 Plt Count 302 Sodium 131.7 L Potassium 3.7 Chloride 97 L Carbon Dioxide 25 Anion Gap 10 BUN 20 Creatinine 1.01 Est GFR ( Amer) > 60 Est GFR (Non-Af Amer) > 60 Glucose 153 H Calcium 9.2 Magnesium 1.7 Total Bilirubin 0.5 AST 28 ALT 32 Alkaline Phosphatase 134 H Total Protein 6.5 Albumin 3.2 L 04/09/18 03:55 Troponin I 0.018 Impressions: Abdomen/Pelvis CT 04/09/18 02:41 IMPRESSION: Nonspecific adenopathy of the posterior mediastinum/right infrahilar region as well as nonspecific adenopathy within the upper abdomen, as well as in the retroperitoneum. Mild haziness of the pancreas, correlate with pancreatic enzyme levels. Small bilateral pleural effusions. Possible mild cellulitis of the lower anterior abdomen/pelvic wall.. TECHNICAL DOCUMENTATION: Quality ID # 436: Final reports with documentation of one or more dose reduction techniques (e.g., Automated exposure control, adjustment of the mA and/or kV according to patient size, use of iterative reconstruction technique) copyright 2010 [employer]- All Rights Reserved Chest CT 04/12/18 00:00 IMPRESSION: Mediastinal and hilar adenopathy. Metastatic disease must be considered. Bilateral pleural effusions. Coronary artery calcification. Mild bilateral adrenal enlargement. This may merely represent adrenal hyperplasia, however, adrenal metastasis cannot entirely be excluded. TECHNICAL DOCUMENTATION: Quality ID # 436: Final reports with documentation of one or more dose reduction techniques (e.g., Automated exposure control, adjustment of the mA and/or kV according to patient size, use of iterative reconstruction technique) copyright 2010 [employer]- All Rights Reserved MUGA 04/12/18 00:00 IMPRESSION: Left ventricular ejection fraction of 45% Mildly dilated left ventricle with globally depressed wall motion Assessment & Plan - Diagnosis (1) Abdominal lymphadenopathy Is this a current diagnosis for this admission?: Yes Plan: Abdominal lymphadenopathy seen on outpatient CT EGD/colonoscopy and lymph node biopsy done Appears to be maligant prostate Ca PRN analgesia and TD fentanyl patch Casodex PO (treament managed by Dr. White) Scheduled Decadron IV Continue IVF D51/2NS Megace for appetite stimulation (2) Diabetes Qualifiers: Diabetes mellitus type: type 2 Diabetes mellitus dedicated intermodal truck driver insulin use: without dedicated intermodal truck driver use Diabetes mellitus complication status: with circulatory complication Diabetes mellitus complication detail: with other circulatory complications Qualified Code(s): E11.59 - Type 2 diabetes mellitus with other circulatory complications Is this a current diagnosis for this admission?: Yes Plan: Accu-Cheks AC at bedtime Humalog sliding scale insulin (3) Intractable pain Is this a current diagnosis for this admission?: Yes Plan: Secondary to malignancy Dilaudid 1 mg IV every 2 hours as needed Fentanyl patch (4) Nausea Is this a current diagnosis for this admission?: Yes Plan: Persistent Secondary to malignancy PRN compazine and zofran Started IV phergan today Patient endorses anorexia due to nausea (5) Dehydration Is this a current diagnosis for this admission?: Yes Plan: Secondary to N/V anorexia Maintenance IVF Renal function relatively unchanged 0.95-->1.1-->1.08 but still making urine (6) CVD (cerebrovascular disease) Is this a current diagnosis for this admission?: Yes Plan: History of CVA in 2014 on Plavix Plavix currently on hold - Time Time Spent with patient: 15-24 minutes Medications reviewed and adjusted accordingly: Yes Anticipated discharge: Home, Hospice - Inpatient Certification Based on my medical assessment, after consideration of the patient's comorbidities, presenting symptoms, or acuity I expect that the services needed warrant INPATIENT care.: Yes I certify that my determination is in accordance with my understanding of Medicare's requirements for reasonable and necessary INPATIENT services [42 CFR 412.3e].: Yes Medical Necessity: Need for Pain Control
[2018-04-13] MEDS: AMITRIPTYLINE HCL 25 MG TABLET PO SCH (22:24)
[2018-04-13] MEDS ORDERED: FUROSEMIDE INJ/PF 40 MG/4 ML SDV IV ONE (22:30)
[2018-04-14] MEDS: LORAZEPAM INJ 2 MG/1 ML VIAL IV PRN (01:35)
[2018-04-14] MEDS: HYDROMORPHONE HCL INJ/PF 2 MG/ML AMPULE IV PRN ×4 (04:08→19:35)
[2018-04-14 05:29] LABS: HEMATOCRIT 33.2 % (37.9-51.0); HEMOGLOBIN 11.8 g/dL (13.5-17.0); MEAN CORPUSCULAR HEMOGLOBIN 32.1 pg (27.0-33.4); MEAN CORPUSCULAR HGB CONC 35.4 g/dL (32.0-36.0); MEAN CORPUSCULAR VOLUME 91 fl (80-97); PLATELET COUNT 268 10^3/uL (150-450); RED BLOOD COUNT 3.67 10^6/uL (4.35-5.55); RED CELL DISTRIBUTION WIDTH 13.1 % (11.5-14.0)
[2018-04-14] MEDS: DEXTROSE 5%-1/2 NORMAL SALINE 1,000 ML IV PRN ×2 (05:58→17:10)
[2018-04-14] MEDS: HEPARIN SOD (PORCINE) 5,000 UNIT/ML 1 ML SYRINGE SUBCUT SCH ×2 (06:00→14:42)
[2018-04-14 06:02] LABS: ALANINE AMINOTRANSFERASE 19 U/L (21-72); ALBUMIN 2.9 g/dL (3.5-5.0); ALKALINE PHOSPHATASE 103 U/L (38-126); ANION GAP 11 (5-19); ASPARTATE AMINO TRANSFERASE 35 U/L (17-59); BILIRUBIN,DIRECT 0.4 mg/dL (0.0-0.4); BILIRUBIN,TOTAL 0.6 mg/dL (0.2-1.3); BLOOD UREA NITROGEN 19 mg/dL (7-20); CALCIUM 8.6 mg/dL (8.4-10.2); CARBON DIOXIDE 22 mmol/L (22-30); CHLORIDE 98 mmol/L (98-107); GLUCOSE 186 mg/dL (75-110); POTASSIUM 3.9 mmol/L (3.6-5.0); SODIUM 131.2 mmol/L (137-145); TOTAL PROTEIN 6.1 g/dL (6.3-8.2)
[2018-04-14] MEDS: LANSOPRAZOLE 30 MG TAB.RAP.DR PO SCH (08:18)
[2018-04-14] MEDS: DEXAMETHASONE SOD PHOSPHATE INJ 4 MG/1 ML VIAL IV SCH ×2 (08:23→19:35)
[2018-04-14] MEDS: BICALUTAMIDE 50 MG TABLET PO SCH (10:15)
[2018-04-14] MEDS: ONDANSETRON HCL INJ/PF 4 MG/2 ML SDV IV PRN ×2 (10:19→19:48)
--- NOTE | 2018-04-14 10:19 | PDOC PROGRESS REPORT ---
Subjective Progress Note for:: 04/14/18 Subjective:: Patient still quite nauseous over the last 24 hours, seems to be getting weaker. Today had a long discussion once again with his , she wanted to entertain the possibility of transfer to [facility] in [place] under the care of [facility]. She notes the main reason for this would be because all of her family is there. She would have much more support there. Reason For Visit: INTRACTABLE PAIN STAGE 4 LYMPHOMA VS PANC CA Physical Exam Vital Signs: Temp Pulse Resp BP Pulse Ox 98.1 F 117 H 17 142/84 H 96 04/14/18 09:30 04/14/18 09:30 04/14/18 09:30 04/14/18 09:30 04/14/18 09:30 Intake & Output 04/13/18 04/14/18 04/15/18 05:59 06:59 06:59 Intake Total Output Total Balance Weight General appearance: PRESENT: no acute distress, well-developed, well-nourished Head exam: PRESENT: atraumatic, normocephalic Eye exam: PRESENT: conjunctiva pink, EOMI, PERRLA. ABSENT: scleral icterus Ear exam: PRESENT: normal external ear exam Mouth exam: PRESENT: moist, tongue midline Neck exam: ABSENT: carotid bruit, JVD, lymphadenopathy, thyromegaly Respiratory exam: PRESENT: clear to auscultation baldev. ABSENT: rales, rhonchi, wheezes Cardiovascular exam: PRESENT: RRR. ABSENT: diastolic murmur, rubs, systolic murmur Pulses: PRESENT: normal dorsalis pedis pul Vascular exam: PRESENT: normal capillary refill GI/Abdominal exam: PRESENT: normal bowel sounds, soft. ABSENT: distended, guarding, mass, organolmegaly, rebound, tenderness Rectal exam: PRESENT: deferred Extremities exam: PRESENT: full ROM. ABSENT: calf tenderness, clubbing, pedal edema Neurological exam: PRESENT: alert, awake, oriented to person, oriented to place, oriented to time, oriented to situation, CN II-XII grossly intact. ABSENT: motor sensory deficit Psychiatric exam: PRESENT: appropriate affect, normal mood. ABSENT: homicidal ideation, suicidal ideation Skin exam: PRESENT: dry, intact, warm. ABSENT: cyanosis, rash Results Laboratory Results: 04/14/18 05:00 04/14/18 05:00 04/14/18 04/14/18 05:00 05:00 WBC 7.0 RBC 3.67 L Hgb 11.8 L Hct 33.2 L MCV 91 MCH 32.1 MCHC 35.4 RDW 13.1 Plt Count 268 Sodium 131.2 L Potassium 3.9 Chloride 98 Carbon Dioxide 22 Anion Gap 11 BUN 19 Creatinine 0.98 Est GFR ( Amer) > 60 Est GFR (Non-Af Amer) > 60 Glucose 186 H Calcium 8.6 Magnesium 1.6 Total Bilirubin 0.6 AST 35 ALT 19 L Alkaline Phosphatase 103 Total Protein 6.1 L Albumin 2.9 L 04/09/18 03:55 Troponin I 0.018 Impressions: Abdomen/Pelvis CT 04/09/18 02:41 IMPRESSION: Nonspecific adenopathy of the posterior mediastinum/right infrahilar region as well as nonspecific adenopathy within the upper abdomen, as well as in the retroperitoneum. Mild haziness of the pancreas, correlate with pancreatic enzyme levels. Small bilateral pleural effusions. Possible mild cellulitis of the lower anterior abdomen/pelvic wall.. TECHNICAL DOCUMENTATION: Quality ID # 436: Final reports with documentation of one or more dose reduction techniques (e.g., Automated exposure control, adjustment of the mA and/or kV according to patient size, use of iterative reconstruction technique) copyright 2010 [employer]- All Rights Reserved Chest CT 04/12/18 00:00 IMPRESSION: Mediastinal and hilar adenopathy. Metastatic disease must be considered. Bilateral pleural effusions. Coronary artery calcification. Mild bilateral adrenal enlargement. This may merely represent adrenal hyperplasia, however, adrenal metastasis cannot entirely be excluded. TECHNICAL DOCUMENTATION: Quality ID # [id number]: Final reports with documentation of one or more dose reduction techniques (e.g., Automated exposure control, adjustment of the mA and/or kV according to patient size, use of iterative reconstruction technique) copyright 2010 [employer]- All Rights Reserved MUGA 04/12/18 00:00 IMPRESSION: Left ventricular ejection fraction of 45% Mildly dilated left ventricle with globally depressed wall motion Assessment & Plan - Diagnosis (1) Prostate cancer metastatic to intraabdominal lymph node Is this a current diagnosis for this admission?: Yes Plan: Continue current therapy with Casodex and then Lupron 1-2 weeks thereafter. Bone scan not yet done, await results. Will discuss with hospitalist team to see if the transfer would be possible. (2) Nausea Is this a current diagnosis for this admission?: Yes Plan: Continue with current regimen - Time Time Spent with patient: 35 or more minutes - Inpatient Certification Based on my medical assessment, after consideration of the patient's comorbidities, presenting symptoms, or acuity I expect that the services needed warrant INPATIENT care.: Yes I certify that my determination is in accordance with my understanding of Medicare's requirements for reasonable and necessary INPATIENT services [42 CFR 412.3e].: Yes Medical Necessity: Need For IV Fluids, Risk of Complication if Not Cared For in Hospital
--- NOTE | 2018-04-14 15:07 | RADIOLOGY REPORT (SQ) ---
EXAM DESCRIPTION: MRI HEAD COMBO COMPLETED DATE/TIME: 04/14/2018 2:32 pm REASON FOR STUDY: confusion in patient with prostate cancer COMPARISON: None. TECHNIQUE: Multiplanar imaging includes noncontrasted T1, T2, FLAIR, Diffusion with ADC map and post gadolinium contrast T1 sequences. Images stored on PACS. CONTRAST TYPE AND DOSE: 15 mL Dotarem RENAL FUNCTION: Not indicated. ACR Type II contrast agent associated with few, if any, unconfounded cases of NSF LIMITATIONS: Motion. FINDINGS: ANATOMY: No anomalies. Normal vascular flow voids. Pituitary fossa normal. CSF SPACES: Atrophy-induced prominence of CSF spaces and ventricles. CEREBRUM: Large old infarcts right frontal lobe and left occipital lobe. High-signal intensity lesio ns scattered throughout the white matter on FLAIR imaging with distribution suggesting chronic micro- vascular ischemic change. No evidence of hemorrhage, mass, extraaxial fluid collection or acute ische malena change. No enhancing lesions. POSTERIOR FOSSA: No signal alteration. No hemorrhage. No edema, masses, or mass effect. Internal jacque tory canals, cerebello-pontine angles, mastoids normal. No enhancing lesions. ORBITS: No masses. Globes normal. PARANASAL SINUSES: No fluid levels. Mucosa normal. DIFFUSION: Normal. No evidence of recent infarct. OTHER: No other significant finding. IMPRESSION: Old infarcts. No evidence of acute infarct or metastatic disease. EVIDENCE OF ACUTE STROKE: NO. TECHNICAL DOCUMENTATION: JOB ID: [id number] [employer]- All Rights Reserved Reading location - IP/workstation name: [email or web address]
[2018-04-14] MEDS: PROMETHAZINE HCL INJ 25 MG/1 ML VIAL IV PRN (15:31)
--- NOTE | 2018-04-14 16:43 | PDOC TRANSFER SUMMARY ---
General Admission Date/PCP: 04/09/18 07:19 LILA GARCIA MD Admission Date: 04/09/18 Transfer Date: 04/14/18 Accepting Facility: [facility] Accepting Physician: Dr. Wong, Hospitalist Resuscitation Status: Full Code - Transfer Diagnosis (1) Abdominal lymphadenopathy Is this a current diagnosis for this admission?: Yes (2) Diabetes Is this a current diagnosis for this admission?: Yes (3) Intractable pain Is this a current diagnosis for this admission?: Yes (4) Nausea Is this a current diagnosis for this admission?: Yes (5) Dehydration Is this a current diagnosis for this admission?: Yes (6) CVD (cerebrovascular disease) Is this a current diagnosis for this admission?: Yes - Transfer Medications Home Medications: Allopurinol [Zyloprim 300 mg Tablet] 300 mg PO DAILY 04/09/18 Amitriptyline HCl [Elavil 25 mg Tablet] 25 mg PO QHS 04/09/18 Clopidogrel Bisulfate [Plavix 75 mg Tablet] 75 mg PO DAILY 04/09/18 Hydrocodone/Acetaminophen [Johnson 5-325 mg Tablet] 1 tab PO Q8HP PRN 04/09/18 Hydromorphone HCl [Dilaudid 2 mg Tablet] 2 mg PO Q4HP PRN 04/09/18 Lorazepam [Ativan 1 mg Tablet] 1 mg PO Q4HP PRN 04/09/18 Omeprazole 40 mg PO Q6AM 04/09/18 Prochlorperazine Maleate [Compazine 10 mg Tablet] 10 mg PO Q6HP PRN 04/09/18 Transfer Medications: Current Medications Amitriptyline HCl (Elavil 25 Mg Tablet) 25 mg PO QHS [facility] Stop: 05/10/18 21:59 Last Admin: 04/13/18 22:24 Dose: 25 mg Documented by: Bicalutamide (Casodex 50 Mg Tablet) 50 mg PO DAILY [facility] Stop: 05/13/18 09:59 Last Admin: 04/14/18 10:15 Dose: 50 mg Documented by: Clopidogrel Bisulfate (Plavix 75 Mg Tablet) 75 mg PO DAILY [facility] Stop: 05/10/18 10:44 Last Admin: 04/10/18 12:09 Dose: Not Given Documented by: Dexamethasone Sodium Phosphate (Decadron Inj 4 Mg/Ml Vial) 4 mg IV Q12@08,1999 [facility] Stop: 05/13/18 11:59 Last Admin: 04/14/18 08:23 Dose: 4 mg Documented by: Dextrose (Dextrose Inj 50% Syringe (25 Gm/50 Ml)) 12.5 gm IV PRN PRN; Protocol PRN Reason: FOR BG 50-69 IN ALERT PATIENT Stop: 05/09/18 10:23 Dextrose (Dextrose Inj 50% Syringe (25 Gm/50 Ml)) 25 gm IV PRN PRN; Protocol PRN Reason: See Label Comments Stop: 05/09/18 10:23 Fentanyl (Duragesic 50 Mcg/Hr Transdermal Patch) 1 each TD Q3DAYS [facility] Stop: 04/19/18 09:59 Last Admin: 04/12/18 09:21 Dose: 1 each Documented by: Glucagon (Glucagen Inj 1 Mg Vial) 1 mg SUBCUT PRN PRN; Protocol PRN Reason: Evaluate for BG < 70 Stop: 05/09/18 10:23 Glucose (Glutose 40% Gel 15 Gm Tube) 15 gm PO PRN PRN; Protocol PRN Reason: For BG 50-69 in Alert Patient Stop: 05/09/18 10:23 Glucose (Glutose 40% Gel 15 Gm Tube) 30 gm PO PRN PRN; Protocol PRN Reason: FOR BG < 50 IN ALERT PATIENT Stop: 05/09/18 10:23 Heparin Sodium (Porcine) (Heparin Inj 5,000 Units/Ml 1 Ml Syringe) 5,000 unit SUBCUT Q8 [facility] Stop: 05/09/18 13:59 Last Admin: 04/14/18 14:42 Dose: 5,000 unit Documented by: Hydromorphone HCl (Dilaudid Inj/Pf 2 Mg/Ml Ampule) 1 mg IV Q2HP PRN PRN Reason: FOR BREAKTHROUGH PAIN Stop: 04/16/18 06:51 Last Admin: 04/14/18 15:32 Dose: 1 mg Documented by: Dextrose/Sodium Chloride (D5-1/2ns 1000 Ml Iv Soln) 1,000 mls @ 100 mls/hr IV CONTINUOUS PRN PRN Reason: THIS MED IS NOT "PRN" Stop: 05/13/18 10:50 Last Admin: 04/14/18 05:58 Dose: 100 mls/hr Documented by: Lansoprazole (Prevacid 30 Mg Odt Tablet) 30 mg PO QAM [facility] Stop: 05/13/18 07:59 Last Admin: 04/14/18 08:18 Dose: Not Given Documented by: Lorazepam (Ativan Inj 2 Mg/1 Ml Vial) 1 mg IV Q3HP PRN PRN Reason: ANXIETY/AGITATION Stop: 04/16/18 06:51 Last Admin: 04/14/18 01:35 Dose: 1 mg Documented by: Magnesium Hydroxide (Milk Of Magnesia 30 Ml Udcup) 30 ml PO HSP PRN PRN Reason: FOR CONSTIPATION Stop: 05/09/18 06:46 Ondansetron HCl (Zofran Inj/Pf 4 Mg/2 Ml Sdv) 4 mg IV Q8HP PRN PRN Reason: FOR NAUSEA/VOMITING Stop: 05/09/18 06:46 Last Admin: 04/14/18 10:19 Dose: 4 mg Documented by: Ondansetron HCl (Zofran Odt 4 Mg Tablet) 4 mg PO Q6HP PRN PRN Reason: FOR NAUSEA/VOMITING Stop: 05/10/18 16:20 Last Admin: 04/13/18 10:06 Dose: 4 mg Documented by: Prochlorperazine Maleate (Compazine 10 Mg Tablet) 10 mg PO Q6HP PRN PRN Reason: NAUSEA/VOMITING Stop: 05/10/18 10:42 Last Admin: 04/13/18 10:59 Dose: 10 mg Documented by: Promethazine HCl (Phenergan Inj 25 Mg/1 Ml Vial) 12.5 mg IV Q8HP PRN PRN Reason: NAUSEA Stop: 05/13/18 10:58 Last Admin: 04/14/18 15:31 Dose: 12.5 mg Documented by: - Allergies Allergies/Adverse Reactions: No Known Allergies Allergy (Verified 04/07/18 10:16) Hospital Course Hospital Course: H&P FIDEL COTA is a 72 year old male with a past medical history of hypertension, 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 He requires IV Dilaudid and Ativan and referred to the hospitalist for admission for diagnostic lymph node biopsy and oncology consult. Patient is sedated and unable to provide history. HOSPITAL COURSE 72 y.o. M with a PMH of HTN, gout, CVA presented to [facility] with N/V/abdominal pain. The patient was originally seen by his PCP, who obtained a CT abdomen/pelvis, which showed diffuse mediastinal lymphadenopathy. The patient was referred to an oncologist, scheduled for an outpatient PET scan, but presented to [facility] ED for intractable abdominal pain, nausea, vomiting and generalized weakness. While inpatient, Mr. Cota underwent an EGD and colonoscopy with supraclavicular lymph node biopsy. Additionally, a biopsy of the esophageal mucosa was performed. Based on the patient's symptomology, HEME/ONC suspected that this may be prostate related. Prostate specific Ag tested, was elevated at 19.5. Dr. White, Oncologist, later reported on hospital day 5 that preliminary results of the biopsy revealed that the patient's diagnosis was likely malignant prostate cancer. He was started on Casodex 50 mg po daily. On hospital day 6, nursing staff and report that the patient was acting confused. Not answering wishes appropriately. MRI brain completed, evaluating for brain metastases, test results were negative. Plan for bone scan to evaluate for metastasis, this has yet to be completed. The patient has suffered intractable nausea while at [facility]. He has been treated with PRN zofran, compazine, phenergan and even ativan. Despite all of these medications, the patient is still only able to tolerate a few sips of clear liquids per day. The patient's need for nutrition has been brought up with the patient and . Currently, the patient is declining an NG or PEG tube. [facility] (04/13/2018) [facility] are aware that they will absorb the cost of transportation. Discussed the patient's case with Dr. Wong, [facility] hospitalist. She has graciously accepted the patient. Plan for transfer to [facility] as soon as a room is available. Physical Exam Vital Signs: Temp Pulse Resp BP Pulse Ox 97.4 F 117 H 16 140/83 H 94 04/14/18 15:42 04/14/18 15:42 04/14/18 15:42 04/14/18 15:42 04/14/18 15:42 Intake & Output 04/13/18 04/14/18 04/15/18 05:59 06:59 06:59 Intake Total Output Total Balance Weight Results Laboratory Results: 04/14/18 05:00 04/14/18 05:00 04/14/18 04/14/18 05:00 05:00 WBC 7.0 RBC 3.67 L Hgb 11.8 L Hct 33.2 L MCV 91 MCH 32.1 MCHC 35.4 RDW 13.1 Plt Count 268 Sodium 131.2 L Potassium 3.9 Chloride 98 Carbon Dioxide 22 Anion Gap 11 BUN 19 Creatinine 0.98 Est GFR ( Amer) > 60 Est GFR (Non-Af Amer) > 60 Glucose 186 H Calcium 8.6 Magnesium 1.6 Total Bilirubin 0.6 AST 35 ALT 19 L Alkaline Phosphatase 103 Total Protein 6.1 L Albumin 2.9 L 04/09/18 03:55 Troponin I 0.018 Impressions: Abdomen/Pelvis CT 04/09/18 02:41 IMPRESSION: Nonspecific adenopathy of the posterior mediastinum/right infrahilar region as well as nonspecific adenopathy within the upper abdomen, as well as in the retroperitoneum. Mild haziness of the pancreas, correlate with pancreatic enzyme levels. Small bilateral pleural effusions. Possible mild cellulitis of the lower anterior abdomen/pelvic wall.. TECHNICAL DOCUMENTATION: Quality ID # 436: Final reports with documentation of one or more dose reduction techniques (e.g., Automated exposure control, adjustment of the mA and/or kV according to patient size, use of iterative reconstruction technique) copyright 2010 [employer]- All Rights Reserved Chest CT 04/12/18 00:00 IMPRESSION: Mediastinal and hilar adenopathy. Metastatic disease must be considered. Bilateral pleural effusions. Coronary artery calcification. Mild bilateral adrenal enlargement. This may merely represent adrenal hyperplasia, however, adrenal metastasis cannot entirely be excluded. TECHNICAL DOCUMENTATION: Quality ID # [id number]: Final reports with documentation of one or more dose reduction techniques (e.g., Automated exposure control, adjustment of the mA and/or kV according to patient size, use of iterative reconstruction technique) copyright 2011 [employer]- All Rights Reserved MUGA 04/12/18 00:00 IMPRESSION: Left ventricular ejection fraction of 45% Mildly dilated left ventricle with globally depressed wall motion Head MRI 04/14/18 00:00 IMPRESSION: Old infarcts. No evidence of acute infarct or metastatic disease. EVIDENCE OF ACUTE STROKE: NO.
[2018-04-14 21:30] VITALS: BP 110/73
== END 2018-04-14 20:55 | disposition short-term general hospital (02) | DRG 825 ==
LOC: ER 02:30 → EH 07:19 → 5 12:53
PROVIDERS: ADMIT Internal Medicine; ATTEND Internal Medicine
PROC: 0DJD8ZZ Inspection of Lower Intestinal Tract, Via Natural or Artificial Opening Endoscopic (ICD-10-PCS; 2018-04-11)
PROC: 07B20ZX Excision of Left Neck Lymphatic, Open Approach, Diagnostic (ICD-10-PCS; principal; 2018-04-11 09:15)
PROC: 0DB48ZX Excision of Esophagogastric Junction, Via Natural or Artificial Opening Endoscopic, Diagnostic (ICD-10-PCS; 2018-04-11 09:15)
DX: C77.0 Secondary and unspecified malignant neoplasm of lymph nodes of head, face and neck (principal); C61 Malignant neoplasm of prostate; G89.3 Neoplasm related pain (acute) (chronic); I10 Essential (primary) hypertension; E86.0 Dehydration; E11.9 Type 2 diabetes mellitus without complications; F32.9 Major depressive disorder, single episode, unspecified; M10.9 Gout, unspecified; Z90.49 Acquired absence of other specified parts of digestive tract; Z87.891 Personal history of nicotine dependence; Z86.73 Personal history of transient ischemic attack (TIA), and cerebral infarction without residual deficits; Z82.49 Family history of ischemic heart disease and other diseases of the circulatory system; Z87.442 Personal history of urinary calculi; Z79.01 Long term (current) use of anticoagulants
CPT/HCPCS: 00320; 36415; 70553; 71045; 71260; 74177; 78472; 80048; 80053; 81001; 82962; 83605; 83615; 83690; 83735; 84100; 84153; 84484; 85025; 85027; 85610; 85730; 86301; 86850; 86900; 86901; 88305; 88341; 88342; 93005; 93010; 96374; 99285; A9560; A9576; J0690; J1100; J1170; J1644; J1940; J2001; J2060; J2250; J2405; J2550; J2704; J3010; J3490; J7030; Q9969; S0119; S0183